=== PATIENT | male | born 1960 | race Caucasian/White ===

== ENCOUNTER 2020-01-23 13:50 | Outpatient (RCR) | payer MEDICAID, SELFPAY ==
[2020-02-29 14:31] LABS: Estimated Average Glucose 146 mg/dL; Hemoglobin A1c % 6.7 %
== END 2020-05-22 14:28 | disposition home or self-care (01) ==
LOC: HO.WCC 13:50
PROVIDERS: Visit Provider Surgery
DX: E11.621 Type 2 diabetes mellitus with foot ulcer (principal); E11.51 Type 2 diabetes mellitus with diabetic peripheral angiopathy without gangrene; I70.245 Atherosclerosis of native arteries of left leg with ulceration of other part of foot; L97.522 Non-pressure chronic ulcer of other part of left foot with fat layer exposed; E11.40 Type 2 diabetes mellitus with diabetic neuropathy, unspecified; L84 Corns and callosities; M32.9 Systemic lupus erythematosus, unspecified; F17.200 Nicotine dependence, unspecified, uncomplicated; Z87.39 Personal history of other diseases of the musculoskeletal system and connective tissue
CPT/HCPCS: 11042; 15275; 83036; 97597; 99212; 99213; Q4187

== ENCOUNTER 2020-03-13 08:16 | Outpatient (REF) | payer MEDICAID, SELFPAY ==
[2020-03-13 10:32] LABS: Blood Urea Nitrogen 12 mg/dL (9-16); Estimated Glomerular Filt Rate > 60
== END 2020-03-13 08:17 | disposition home or self-care (01) ==
LOC: HO.10HDL 08:16
PROVIDERS: Visit Provider Radiology Vascular & Interventional Radiology
DX: R79.89 Other specified abnormal findings of blood chemistry (principal); R94.4 Abnormal results of kidney function studies
CPT/HCPCS: 82565; 84520

== ENCOUNTER 2020-03-22 07:45 | Outpatient (REF) | payer MEDICAID, SELFPAY ==
[2020-03-22 10:17] LABS: Hematocrit 45.1 % (42-52); Hemoglobin 14.4 g/dl (14.0-18.0); Mean Corpuscular HGB Conc 31.9 g/dl (31.0-36.0); Mean Corpuscular Hemoglobin 30.3 pg (27.0-33.0); Mean Corpuscular Volume 94.7 fL (80-98); Mean Platelet Volume 11.7 fL (9.4-12.4); Platelet Count 253 X10*3/uL (160-400); Red Blood Count 4.76 X10*6/uL (4.60-5.80); Red Cell Distribution Width 12.9 % (11.0-16.0); White Blood Count 10.9 X10*3/uL (4.8-10.8)
[2020-03-22 10:35] LABS: INTERNATIONAL NORM RATIO 2.3 (0.9-1.1); Prothrombin Time 27.5 SEC (10.8-13.0)
[2020-03-22 10:38] LABS: Partial Thromboplastin Time 50.6 SEC (24.1-38.0)
[2020-03-22 10:52] LABS: Blood Urea Nitrogen 10 mg/dL (9-16); Estimated Glomerular Filt Rate > 60
== END 2020-03-22 07:46 | disposition home or self-care (01) ==
LOC: HO.10HDL 07:45
PROVIDERS: Visit Provider Radiology Vascular & Interventional Radiology
DX: Z01.818 Encounter for other preprocedural examination (principal)
CPT/HCPCS: 36415; 82565; 84520; 85027; 85610; 85730

== ENCOUNTER 2020-04-27 07:40 | Outpatient (REF) | payer MEDICAID, SELFPAY ==
--- NOTE | 2020-04-27 07:47 | XR_ITS ---
EXAMINATION: XR FOOT, LEFT CLINICAL INFORMATION: Left foot first metatarsal head, diabetic foot, question osteomyelitis COMPARISON: Left foot radiograph from 02/20/2018 TECHNIQUE: AP, lateral, and oblique views of the left foot. FINDINGS: Status post transmetatarsal amputation involving the first distal metatarsal. Post surgical changes are noted with subchondral changes. Healed fracture deformity involving the second metatarsal distal metadiaphysis redemonstration of sclerotic changes involving the third metatarsal head suggesting Freiberg's infraction/avascular necrosis. No cortical erosions or periosteal thickening visualized. Questionable soft tissue defect at the medial aspect at the level of the first metatarsal diaphysis without soft tissue gas noted. Atherosclerotic calcifications are visualized. XR/XR foot LT min 3V IMPRESSION: 1. Postsurgical changes involving the first metatarsal head. 2. Questionable soft tissue defect at the medial aspect at the level of the first metatarsal diaphysis without soft tissue gas noted. No cortical erosions or periosteal thickening suggest osteomyelitis. 3. Post fracture deformity of the second distal metatarsal. 4. 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
== END 2020-04-27 07:41 | disposition home or self-care (01) ==
LOC: HO.XRAY 07:40
PROVIDERS: PCP Family Medicine; Visit Provider Surgery
DX: E11.621 Type 2 diabetes mellitus with foot ulcer (principal)
CPT/HCPCS: 73630

== ENCOUNTER 2020-05-10 10:26 | Emergency (ER) | payer MEDICAID, SELFPAY ==
--- NOTE | ~2020-05-10 | XR_ITS ---
EXAMINATION: XR CHEST CLINICAL INFORMATION: Chest palpitations COMPARISON: None TECHNIQUE: Frontal view of the chest was obtained. FINDINGS: No significant abnormality is noted involving the heart, lungs, mediastinum, bony thorax or soft tissues. XR/XR chest 1V IMPRESSION: Unremarkable chest exam.
--- NOTE | 2020-05-10 08:23 | ECG_ITS ---
Test Reason : REPEAT Blood Pressure : / mmHG Vent. Rate : 111 BPM Atrial Rate : 156 BPM P-R Int : 000 ms QRS Dur : 094 ms QT Int : 344 ms P-R-T Axes : 000 039 003 degrees QTc Int : 467 ms Atrial fibrillation with rapid ventricular response with premature ventricular or aberrantly conducted complexes Abnormal ECG When compared with ECG of 10-MAY-2020 10:44, No significant change was found Referred By: Wilian Nelson Electronically Signed By:LIDYA FLORES MD
--- NOTE | 2020-05-10 09:30 | CA_ITS ---
Transthoracic Echocardiogram Patient (Last, First, Middle): Wyatt Cohen F Gender: Male Date of : 1960 Age: 59 Procedure Date: 05/10/2020 Procedure Type: Transthoracic Echocardiogram Location: OP Height: 177.8 cm Weight: 111.13 kg BSA: 2.28 m2 Heart Rate: bpm BP: 139 / 70 mmHg Point Of Care Specialist: DAVIS Referring MD: Cortez Nava MD Claims Consultant: Cortez Nava MD Symptoms: I48.0 PAF, I10 HTN E11.9 DM 2 G47.33 KEON Study Quality: Fair ECG Rhythm: Atrial Fibrillation Conclusions: - 1. Mildly reduced LV systolic function with LVEF of 45-50% 2. Mild dilation of left atrium 3. Normal cardiac valvular Doppler 4. Normal RV systolic pressure 5. No pericardial effusion Findings Left Ventricle Normal left ventricular cavity size. There is normal left ventricular wall thickness. The left ventricular systolic function is mildly decreased. The visually estimated ejection fraction is between 45-50%. Diastolic function is indeterminate on the basis of available data. Right Ventricle Normal right ventricular cavity size and systolic function. Atria The left atrium is mildly dilated. There is no evidence of interatrial shunt. The right atrium is likely dilated. Aortic Valve The aortic valve structure and function is likely normal. There is no aortic valve stenosis. There is no aortic valve regurgitation. Mitral Valve There is mild anterior and posterior mitral leaflet thickening. There is trace mitral valve regurgitation. There is no mitral valve stenosis. Pulmonic Valve The pulmonic valve was not well visualized. Tricuspid Valve Likely normal tricuspid valve structure and function. There is trace tricuspid valve regurgitation. The right ventricular systolic pressure is normal. The right ventricular systolic pressure is 12 mmHg. Normal right atrial pressure. There is no evidence of pulmonary hypertension. Great Vessels All visible segments of the aorta are normal in size. The pulmonary artery was not well visualized. Venous The inferior vena cava is normal in size and collapses greater than 50% with inspiration. Pericardium/Pleural There is no evidence of pericardial effusion. Prior Study Comparison Changes noted compared to prior study dated: 09/02/2016. LV systolic function marginally reduced Measurements 2D Linear Measurements IVSd: 1.13 0.6-0.9/0.6-1.0 cm LVIDd: 4.38 3.9-5.3/4.2-5.9 cm LVIDd Index: 1.92 2.4-3.2/2.2-3.1 cm/m2 LVIDs: 3.32 2.0-3.6 cm LVPWd: 1.14 0.7-1.1 cm Ao Root: 3.00 2.1-3.5 cm LA Diam: 3.70 2.7-3.8/3.0-4.0 cm LAIDs Index: 1.62 1.5-2.3 cm/m2 LV Mass: 218.45 67-162/88-224 g LV Mass Index: 95.81 43-95/49-115 g/m2 LVOT Diam: 2.30 3.0+(-)1.3 cm 2D Systolic Function EF 4C: 47.30 >55% EF 2C: 52.30 >55% EF BiP: 48.90 >55% Aortic Valve AoV Pk Yonathan: 1.39 AoV Mn Yonathan: 0.94 AoV VTI: 0.24 AoV Pk Grad: 8.00 Aov Mn Grad: 4.00 RIKKI Cont.VTI: 2.97 LVOT LVOT Pk Yonathan: 1.01 LVOT Mn Yonathan: 0.69 LVOT VTI: 0.17 LVOT Pk Grad: 4.00 LVOT Mn Grad: 2.00 LVOT Diam: 2.30 LVOT Area: 4.15 Tricuspid Valve TR Pk Yonathan: 1.47 TR Pk Grad: 9.00 RA Press: 3.00 RVSP: 12.00 Great Vessels Aorta Ao Root-2D: 3.00 2.0-3.7 cm Ao Asc: 3.30 2.1-3.4 cm Updated in Other Vendor System with Status of Final Cortez Nava MD electronically signed on 05/11/2020 3:05:46 PM with status of Final
[2020-05-10 10:35] VITALS: BP 111/61; PULSE 115; RESP 14; TEMP 37.1; O2SAT 97; BMI 35.2
--- NOTE | 2020-05-10 10:48 | ECG_ITS ---
Test Reason : AFIB Blood Pressure : / mmHG Vent. Rate : 107 BPM Atrial Rate : 111 BPM P-R Int : 000 ms QRS Dur : 084 ms QT Int : 364 ms P-R-T Axes : 000 038 011 degrees QTc Int : 485 ms Atrial fibrillation with rapid ventricular response with premature ventricular or aberrantly conducted complexes Abnormal ECG When compared with ECG of 01-SEP-2016 11:40, No significant change was found Referred By: Wilian Nelson Electronically Signed By:LIDYA FLOERS MD
[2020-05-10 11:35] LABS: MANUAL DIFF FLAG NO
[2020-05-10 11:39] VITALS: BP 113/56; PULSE 105; RESP 16; TEMP 37; O2SAT 96
[2020-05-10 11:40] LABS: Basophils Absolute Auto 0.1 X10*3/uL (0.0-0.2); Basophils Percent Auto 0.5 % (0-2); Eosinophils Absolute Auto 0.1 X10*3/uL (0.0-0.4); Eosinophils Percent Auto 1.4 % (0-4); Hematocrit 42.3 % (42-52); Hemoglobin 13.7 g/dl (14.0-18.0); Imm Gran Abs Auto 0.02 X10*3/uL (0.00-0.03); Imm Gran Pct Auto 0.2 % (0.0-0.4); Lymphocytes Absolute Auto 2.1 X10*3/uL (1.2-4.9); Lymphocytes Percent Auto 23.2 % (20-40); Mean Corpuscular HGB Conc 32.4 g/dl (31.0-36.0); Mean Corpuscular Hemoglobin 30.4 pg (27.0-33.0); Mean Corpuscular Volume 93.8 fL (80-98); Mean Platelet Volume 10.8 fL (9.4-12.4); Monocytes Absolute Auto 0.8 X10*3/uL (0.1-1.2); Monocytes Percent Auto 8.3 % (2-11); Neutrophils Percent Auto 66.4 % (45-73); Platelet Count 249 X10*3/uL (160-400); Red Blood Count 4.51 X10*6/uL (4.60-5.80); Red Cell Distribution Width 13.7 % (11.0-16.0); White Blood Count 9.1 X10*3/uL (4.8-10.8)
[2020-05-10 11:47] LABS: Prothrombin Time 23.7 SEC (10.8-13.0)
[2020-05-10 11:50] LABS: Partial Thromboplastin Time 49.1 SEC (24.1-38.0)
[2020-05-10 12:03] LABS: Troponin-I High Sensitivity < 3.5 ng/L (<3.5-35.0)
[2020-05-10 12:07] VITALS: BP 159/95; PULSE 110
[2020-05-10] MEDS: Metoprolol Tartrate 5 MG/5 ML VIAL IVPUSH (12:07)
[2020-05-10 12:11] LABS: Alanine Aminotransferase 17 U/L (0-40); Albumin Level 3.9 g/dL (3.5-5.0); Alkaline Phosphatase 62 U/L (39-117); Anion Gap 14 (12-20); Aspartate Amino Transferase 14 U/L (5-37); Bilirubin Total 0.5 mg/dL (0.0-1.0); Blood Urea Nitrogen 12 mg/dL (9-16); Calcium 8.8 mg/dL (8.4-10.2); Carbon Dioxide 25 mmol/L (22-29); Chloride 107 mmol/L (96-108); Creatinine Clr Calc Pharmacy 115.3; Estimated Glomerular Filt Rate > 60; Glucose Random 132 mg/dL (60-115); Potassium 4.4 mmol/L (3.3-5.1); Sodium 142 mmol/L (135-145)
[2020-05-10 12:22] LABS: Glucose Urine UA NEG (NEG); Leukocyte Esterase Urine 1+ (NEG); Nitrite Urine POS (NEG); Specific Gravity - Urine 1.025 (1.005-1.025); UACC Culture Trigger YES; Urine Blood 1+ (NEG); Urine Ketones NEG (NEG); Urine Protein NEG (NEG-TRACE)
[2020-05-10 12:23] LABS: Appearance Urine CLOUDY; Color Urine YELLOW
[2020-05-10 12:31] LABS: Thyroid Stimulating Hormone 0.65 uIU/mL (0.32-4.0)
--- NOTE | 2020-05-10 12:46 | ED.ARRPALP ---
HPI - Arrhythmia/Palpitations General Chief Complaint: Arrhythmia/Palpitations Time Seen by Provider: 05/10/20 10:35 Source: patient Mode of arrival: ambulatory Limitations: no limitations History of Present Illness HPI narrative: 59-year-old male with past medical history significant for hypertension, hyperlipidemia, diabetes, chronic pain syndrome from previous back injury, history of lower extremity cellulitis as well as osteomyelitis, asthma, neuropathy, proximal atrial fibrillation chronically anticoagulated on Xarelto and maintained on metoprolol 100 daily in the morning with surgical history of ankle surgery, toe amputation of the left foot who presents from outpatient Cardiology with complaint of AFib with RVR. Patient reports he was in for routine echo and during the preprocedure screening noted to be AFib with RVR advised to come to the emergency room. MD complaint: rapid heart beat Duration: constant Severity: mild Arrhythmia history: atrial fibrillation Related Data Allergies Allergy/AdvReac Type Severity Reaction Status Date / Time vancomycin [VANCOMYCIN] Allergy Intermediate ITCHING, Unverified 12/15/19 14:46 RASH, hives Review of Systems Review of Systems: Constitutional: No Weight loss, No Fever, No Chills, No Night Sweats, No Fatigue, No Malaise ENT/Mouth: No Hearing loss, No Ear Pain, No Nasal Congestion, No Sinus Pain, No Hoarseness, No sore throat, No Rhinorrhea, No Swallowing Difficulty Eyes: No Eye Pain, No Swelling, No Redness, No Foreign Body, No Discharge, No Vision Changes Cardiovascular: No Chest Pain, No SOB, No Dyspnea on Exertion, No Orthopnea, No Edema, No Palpitations Respiratory: No Cough, No Sputum, No Wheezing, No Smoke Exposure, No Dyspnea Gastrointestinal: No Nausea, No Vomiting, No Diarrhea, No Constipation, No abdominal Pain, No Hematochezia, No Melena Genitourinary: no irregular bleeding, No Dysuria, No Urinary Frequency, No Hematuria, No Urinary Incontinence, No Urgency, No Flank Pain Musculoskeletal: No joint pain, No Myalgias, No Joint Swelling Skin: No Skin Lesions, No rash Neuro: No Weakness, No Numbness, No Paresthesias, No Loss of Consciousness, No Dizziness, No Headache Psych: No Social Issues Heme/Lymph: No Bruising, No Bleeding,No Lymphadenopathy Endocrine: No Polyuria, No Polydipsia, No Temperature Intolerance Yes all other systems are reviewed and are negative PMFSH Past Medical History Medical History (Updated 05/10/20 @ 13:23 by Wilian Nelson NP) Amputated great toe Diabetes Physical Exam Vital Signs: Vital Signs: Last Vital Signs Temp 98.6 F 05/10/20 13:20 Pulse 88 05/10/20 13:20 Resp 14 05/10/20 13:20 BP 123/65 05/10/20 13:20 Pulse Ox 98 05/10/20 13:20 Body Mass Index 35.2 Reviewed Const: General: cooperative and healthy appearing; No acute distress or intoxicated appearing Nutritional Appearance: average body habitus Orientation/consciousness: patient oriented x3 HENMT: Head: Yes normal to inspection Ears: hearing grossly normal bilaterally Eyes: General: appearance normal, both eyes and all related structures Visual Lr: normal visual lr by confrontation Neck: Neck: Yes normal visual inspection, No positive Brudzinski's sign, No positive Kernig's sign and No tender Thyroid: Thyroid normal Chest: Chest palpation & inspection: normal inspection of the chest Resp: Effort & Inspection: normal respiratory effort Auscultation: clear to auscultation bilaterally Cardio: Jugular venous distension: no JVD Rhythm: abnormal rhythm (AFib 110) GI: Inspection: Yes normal to inspection Percussion: Yes normal to percussion Auscultation: normal bowel sounds : General: Yes no CVA tenderness Back/Spine/Pelvis: Back: no CVA tenderness Skin: General skin exam: no rashes or lesions noted Neuro: General: patient oriented x3 Extrem: General: Yes normal to inspection Course Course Course Narrative: In review MDM - Arrhythmia/Palpitations MDM Narrative Medical decision making narrative: Interview 59-year-old male with above history including history of paroxysmal atrial fibrillation currently maintained on metoprolol 100 mg in the morning daily and Xarelto arriving to ED with atrial fibrillation with RVR. He is asymptomatic workup overall unrevealing. Bedside monitor AFib confirmed on EKG rate varying from 90-115 given 5 mg of metoprolol IV has maintained in the high 90s remains asymptomatic. Case discussed with Dr. Nava cardiology recommendation to increase his metoprolol to b.i.d.. Blood pressure remains stable. He is out of bed ambulatory steady gait. Good bathroom without any symptoms. Will discharge home with clear return follow-up instructions prior to he does have follow-up coming with Cardiology. Stable for discharge. Lab Data Result diagrams: 05/10/20 11:29 05/10/20 11:29 Labs: Lab Results 05/10/20 05/10/20 05/10/20 Range/Units 11:29 11:29 11:29 WBC 9.1 (4.8-10.8) X10*3/uL RBC 4.51 L (4.60-5.80) X10*6/uL Hgb 13.7 L (14.0-18.0) g/dl Hct 42.3 (42-52) % MCV 93.8 (80-98) fL MCH 30.4 (27.0-33.0) pg MCHC 32.4 (31.0-36.0) g/dl RDW 13.7 (11.0-16.0) % Plt Count 249 (160-400) X10*3/uL MPV 10.8 (9.4-12.4) fL Immature Gran % (Auto) 0.2 (0.0-0.4) % Neut % (Auto) 66.4 (45-73) % Lymph % (Auto) 23.2 (20-40) % [place] % (Auto) 8.3 (2-11) % Eos % (Auto) 1.4 (0-4) % Baso % (Auto) 0.5 (0-2) % Lymph # (Auto) 2.1 (1.2-4.9) X10*3/uL [place] # (Auto) 0.8 (0.1-1.2) X10*3/uL Eos # (Auto) 0.1 (0.0-0.4) X10*3/uL Baso # (Auto) 0.1 (0.0-0.2) X10*3/uL Abs Immat Gran (auto) 0.02 (0.00-0.03) X10*3/uL Absolute Neuts (auto) 6.0 (2.0-8.3) X10*3/uL Absolute Nucleated RBC 0.000 (0.0-0.012) X10*3/uL Nucleated RBC % (auto) 0.0 (0.0-0.2) /100WBC PT 23.7 H (10.8-13.0) SEC INR 2.0 H (0.9-1.1) APTT 49.1 H (24.1-38.0) SEC Sodium 142 (135-145) mmol/L Potassium 4.4 (3.3-5.1) mmol/L Chloride 107 (96-108) mmol/L Carbon Dioxide 25 (22-29) mmol/L Anion Gap 14 (12-20) BUN 12 (9-16) mg/dL Creatinine 0.85 (0.5-1.4) mg/dL Estim Creat Clear Calc 115.3 Estimated GFR > 60 Random Glucose 132 H (60-115) mg/dL Calcium 8.8 (8.4-10.2) mg/dL Total Bilirubin 0.5 (0.0-1.0) mg/dL AST 14 (5-37) U/L ALT 17 (0-40) U/L Alkaline Phosphatase 62 (39-117) U/L Troponin I High Sens (<3.5-35.0) ng/L Total Protein 7.0 (6.5-8.0) g/dL Albumin 3.9 (3.5-5.0) g/dL TSH 0.65 (0.32-4.0) uIU/mL Urine Color Urine Appearance Urine pH (5.0-8.0) Ur Specific [place] (1.005-1.025) Urine Protein (NEG-TRACE) MG/DL Urine Glucose (UA) (NEG) MG/DL Urine Ketones (NEG) MG/DL Urine Blood (NEG) Urine Nitrite (NEG) Ur Leukocyte Esterase (NEG) Urine RBC (0) /HPF Urine WBC (0-4) /HPF Ur Squamous Epith Cells /LPF Urine Bacteria /LPF Urine Opiates Screen (Not Detect) Ur Barbiturates Screen (Not Detect) Ur Phencyclidine Scrn (Not Detect) Ur Amphetamines Screen (Not Detect) U Benzodiazepines Scrn (Not Detect) Urine Cocaine Screen (Not Detect) U Marijuana (THC) Screen (Not Detect) 05/10/20 05/10/20 05/10/20 Range/Units 11:29 12:00 12:00 WBC (4.8-10.8) X10*3/uL RBC (4.60-5.80) X10*6/uL Hgb (14.0-18.0) g/dl Hct (42-52) % MCV (80-98) fL MCH (27.0-33.0) pg MCHC (31.0-36.0) g/dl RDW (11.0-16.0) % Plt Count (160-400) X10*3/uL MPV (9.4-12.4) fL Immature Gran % (Auto) (0.0-0.4) % Neut % (Auto) (45-73) % Lymph % (Auto) (20-40) % [place] % (Auto) (2-11) % Eos % (Auto) (0-4) % Baso % (Auto) (0-2) % Lymph # (Auto) (1.2-4.9) X10*3/uL [place] # (Auto) (0.1-1.2) X10*3/uL Eos # (Auto) (0.0-0.4) X10*3/uL Baso # (Auto) (0.0-0.2) X10*3/uL Abs Immat Gran (auto) (0.00-0.03) X10*3/uL Absolute Neuts (auto) (2.0-8.3) X10*3/uL Absolute Nucleated RBC (0.0-0.012) X10*3/uL Nucleated RBC % (auto) (0.0-0.2) /100WBC PT (10.8-13.0) SEC INR (0.9-1.1) APTT (24.1-38.0) SEC Sodium (135-145) mmol/L Potassium (3.3-5.1) mmol/L Chloride (96-108) mmol/L Carbon Dioxide (22-29) mmol/L Anion Gap (12-20) BUN (9-16) mg/dL Creatinine (0.5-1.4) mg/dL Estim Creat Clear Calc Estimated GFR Random Glucose (60-115) mg/dL Calcium (8.4-10.2) mg/dL Total Bilirubin (0.0-1.0) mg/dL AST (5-37) U/L ALT (0-40) U/L Alkaline Phosphatase (39-117) U/L Troponin I High Sens < 3.5 (<3.5-35.0) ng/L Total Protein (6.5-8.0) g/dL Albumin (3.5-5.0) g/dL TSH (0.32-4.0) uIU/mL Urine Color YELLOW Urine Appearance CLOUDY Urine pH 6.0 (5.0-8.0) Ur Specific [place] 1.025 (1.005-1.025) Urine Protein NEG (NEG-TRACE) MG/DL Urine Glucose (UA) NEG (NEG) MG/DL Urine Ketones NEG (NEG) MG/DL Urine Blood 1+ H (NEG) Urine Nitrite POS H (NEG) Ur Leukocyte Esterase 1+ H (NEG) Urine RBC 5-9 H (0) /HPF Urine WBC 76-150 H (0-4) /HPF Ur Squamous Epith Cells NONE /LPF Urine Bacteria 4+ /LPF Urine Opiates Screen POSITIVE H (Not Detect) Ur Barbiturates Screen Not Detected (Not Detect) Ur Phencyclidine Scrn Not Detected (Not Detect) Ur Amphetamines Screen Not Detected (Not Detect) U Benzodiazepines Scrn Not Detected (Not Detect) Urine Cocaine Screen Not Detected (Not Detect) U Marijuana (THC) Screen Not Detected (Not Detect) Imaging Data Chest x-ray: Radiologist's impression: [address] [id number] ReportSigned Patient: Wyatt Cohen FMR#: [id number]: 1960Acct:[id number]/Sex: 59 / MADM Date: 05/10/20Loc: [email or web address] Dr: Cortez Nava MD Ordering Physician: Wilian Nelson NP Date of Service: 05/10/20 Procedure(s): XR chest 1V Accession Number(s): [id number] cc: Wilian Nelson ARMORER TECHNICIAN~ EXAMINATION: XR CHEST CLINICAL INFORMATION: Chest palpitations COMPARISON: None TECHNIQUE: Frontal view of the chest was obtained. FINDINGS: No significant abnormality is noted involving the heart, lungs, mediastinum, bony thorax or soft tissues. XR/XR chest 1V IMPRESSION: Unremarkable chest exam. Dictated By:ISABELLA PEGUERO MDSigned By:<Electronically signed by ISABELLA PEGUERO MD in OV>05/10/20 1203 DD/ 1048TD/TT: Bobbin Painter: LIANA ECG Data Interpretation: Atrial fibrillation with rapid ventricular response with premature ventricular or aberrantly conducted complexes Abnormal ECG When compared with ECG of 01-SEP-2016 11:40, No significant change was found Discharge Plan Discharge Clinical Impression: Atrial fibrillation Patient Disposition: Home, Self-Care Instructions: A-fib (Atrial Fibrillation) (ED) Additional Instructions: Increase her metoprolol dose from 100 mg in the morning to Twice a day (once in the morning and once at night) Return if any concerns or worsening symptoms Follow-up with coil strapper as planned Thank you Referrals: Cortez Nava MD [Physician] - 1 week Interventions: ED Discharge Assessment Last Done: 05/10/20 13:44 Discharge Date/Time: 05/10/20 13:47
[2020-05-10 13:00] LABS: Amphetamine Screen Urine Not Detected (Not Detect); Barbiturates, Urine Not Detected (Not Detect); Benzodiazepines Screen Urine Not Detected (Not Detect); Cannabinoid Screen Urine Not Detected (Not Detect); Cocaine Screen Urine Not Detected (Not Detect); Opiate Screen Urine POSITIVE (Not Detect); Phencyclidine Screen Urine Not Detected (Not Detect)
[2020-05-10 13:01] LABS: Bacteria Urine 4+ /LPF; UACC CULT YES
[2020-05-10 13:20] VITALS: BP 123/65; PULSE 88; RESP 14; TEMP 37; O2SAT 98
== END 2020-05-10 13:47 | disposition home or self-care (01) ==
LOC: HO.ED 10:26
PROVIDERS: Nurse Practitioner Primary Care; Emergency Provider Internal Medicine; Visit Provider Internal Medicine Cardiovascular Disease
DX: I48.91 Unspecified atrial fibrillation (principal); R07.9 Chest pain, unspecified; I10 Essential (primary) hypertension; E78.5 Hyperlipidemia, unspecified; Z79.01 Long term (current) use of anticoagulants
CPT/HCPCS: 36415; 71045; 80053; 80307; 81001; 84443; 84484; 85025; 85610; 85730; 87086; 87088; 87186; 93005; 93306; 96374; 99284

== ENCOUNTER → 2020-05-16 09:49 | Outpatient (BNVA) | payer MEDICAID, SELFPAY | PROVIDERS: PCP Family Medicine; Visit Provider Internal Medicine Cardiovascular Disease | DX: I48.19 Other persistent atrial fibrillation (principal); I10 Essential (primary) hypertension; I42.9 Cardiomyopathy, unspecified; G47.33 Obstructive sleep apnea (adult) (pediatric) | CPT/HCPCS: 93005; 99212 ==

== ENCOUNTER 2020-05-18 12:18 | Day surgery (SDC) | payer MEDICAID, SELFPAY ==
--- NOTE | 2020-05-17 09:58 | P.CONAN_ITS ---
Documented by User: Julita Jesusney 05/17/20 10:12 HPI - Anesthesia Eval Consult details Narrative: 59yo M for Cardioversion Xarelto for afib Chronic opioids PMFSH Active Problems Active Problems: All Active Problems (Updated 05/16/20 @ 10:20 by Cortez Nava MD) Cardiomyopathy (Acute) Obstructive sleep apnea (Acute) HTN (hypertension) (Acute) Persistent atrial fibrillation with rapid ventricular response (Acute) Past Medical History Medical History Amputated great toe Cardiomyopathy Diabetes HTN (hypertension) Obstructive sleep apnea Paroxysmal atrial fibrillation Peripheral vascular disease Smoker Family History Family History Mother No problems noted. Father No problems noted. Family/Other Diabetes Surgical History Surgical History History of cardiac cath Social History Social History Alcohol intake: former Smoking Status: Current every day smoker Packs Per Day: 0.5 Cigarettes Per Day: 10 Years Smoked: 45 years Use of substances other than those prescribed or required for medical reasons: No Have you been hit, kicked, punched, or otherwise hurt by someone within the past year? If so, by whom?: No Advance Directives: No Advance Directives Information Provided: No Meds Allergies Allergy/AdvReac Type Severity Reaction Status Date / Time vancomycin [VANCOMYCIN] Allergy Intermediate ITCHING, Verified 05/18/20 12:29 RASH, hives Home Medications Medication Instructions Recorded Confirmed Last Taken Type atorvastatin 40 mg tablet 40 mg PO DAILY 05/16/20 05/16/20 05/18/20 History metformin 750 mg tablet,extended 750 mg PO BID 05/16/20 05/16/20 Unknown History release 24 hr morphine 30 mg capsule,extended 30 mg PO BID cap 05/16/20 05/16/20 05/18/20 History release 24 hr multiphase rivaroxaban 20 mg tablet 20 mg PO QPM 05/16/20 05/16/20 05/18/20 History Exam Exam Date and Time: May 17, 2020 4608 Narrative Narrative: ECHO 05/10/20 Conclusions: - 1. Mildly reduced LV systolic function with LVEF of 45-50% 2. Mild dilation of left atrium 3. Normal cardiac valvular Doppler 4. Normal RV systolic pressure 5. No pericardial effusion EKG 04/2020 Atrial fibrillation with rapid ventricular response with premature ventricular or aberrantly conducted complexes Abnormal ECG When compared with ECG of 01-SEP-2016 11:40, No significant change was found Assessment and Plan Assessment Anesthesia Assessment: Chart Reviewed Documented by User: Monse Smith 05/18/20 13:42 [facility] Past Medical History Medical History Amputated great toe Cardiomyopathy Diabetes HTN (hypertension) Obstructive sleep apnea Paroxysmal atrial fibrillation Peripheral vascular disease Smoker Family History Family History Mother No problems noted. Father No problems noted. Family/Other Diabetes Surgical History Surgical History History of cardiac cath Social History Social History Alcohol intake: former Smoking Status: Current every day smoker Packs Per Day: 0.5 Cigarettes Per Day: 10 Years Smoked: 45 years Use of substances other than those prescribed or required for medical reasons: No Have you been hit, kicked, punched, or otherwise hurt by someone within the past year? If so, by whom?: No Advance Directives: No Advance Directives Information Provided: No Meds Allergies Allergy/AdvReac Type Severity Reaction Status Date / Time vancomycin [VANCOMYCIN] Allergy Intermediate ITCHING, Verified 05/18/20 12:29 RASH, hives Home Medications Medication Instructions Recorded Confirmed Last Taken Type atorvastatin 40 mg tablet 40 mg PO DAILY 05/16/20 05/16/20 05/18/20 History metformin 750 mg tablet,extended 750 mg PO BID 05/16/20 05/16/20 Unknown History release 24 hr morphine 30 mg capsule,extended 30 mg PO BID cap 05/16/20 05/16/20 05/18/20 History release 24 hr multiphase rivaroxaban 20 mg tablet 20 mg PO QPM 05/16/20 05/16/20 05/18/20 History Exam Airway Mallampati Class: III TM Dist: >3cm Neck ROM: Full Assessment and Plan Assessment Anesthesia Assessment: Anesthesia Plan Discussed and Chart Reviewed Final Anesthetic Review NPO: Yes ASA Class: III Final Preanesthetic Review: No Changes in Pt Med Stat, Meds/Allgs Chart Reviewed, Consent Obtained/Reviewed and Anes Risks/Benef Reviewed Patient Risk: Intermediate Procedure Risk: Low Assessment/Block/Sedation in SS: Assess/Block/Sedation-SS Anesthetic Plan Anesthetic Plan: MAC: Disposition: Standard PACU
[2020-05-17 13:43] VITALS: BMI 35.7
[2020-05-18] VITALS (9 sets, daily range): BP systolic 91–110; BP diastolic 50–66; PULSE 65–84; RESP 16–18; TEMP 36.4–37.5; O2SAT 95–98
--- NOTE | 2020-05-18 12:25 | PC.NURSE ---
PATIENT DRANK CRANBERRY JUICE AT 1100 AM MD SUZIE ALFARO
[2020-05-18 12:33] LABS: Glucose, Whole Blood 142 mg/dL (60-115)
[2020-05-18] MEDS: Lactated Ringers 1,000 ML 50 ML IVCONT (13:00)
--- NOTE | 2020-05-18 13:39 | MHC.SHP ---
Pre-Procedural Eval Section A The patient is an INPATIENT: No Changes since office visit: Yes Changes in Medication and Yes Patient answered all questions; No Cold of Flu in the past 2 weeks and No New Medical Problems The History & Physical has been completed within 30 days and I have reviewed it.: Yes Section B Chief Complaint: a-fib Allergies: Allergies Allergy/AdvReac Type Severity Reaction Status Date / Time vancomycin [VANCOMYCIN] Allergy Intermediate ITCHING, Verified 05/18/20 12:29 RASH, hives Plan I have reviewed the history and physical and performed a pertinent physical examination on my patient. No changes have occurred unless specified.
--- NOTE | 2020-05-18 13:40 | ECG_ITS ---
Test Reason : POST CARDIOVERSION Blood Pressure : / mmHG Vent. Rate : 066 BPM Atrial Rate : 066 BPM P-R Int : 170 ms QRS Dur : 094 ms QT Int : 414 ms P-R-T Axes : 048 054 036 degrees QTc Int : 434 ms Normal sinus rhythm Normal ECG When compared with ECG of 10-MAY-2020 13:25, Sinus rhythm has replaced Atrial fibrillation Vent. rate has decreased BY 45 BPM Nonspecific T wave abnormality has replaced inverted T waves in Inferior leads Referred By: Cortez Nava Electronically Signed By:Isaiah Farr
--- NOTE | 2020-05-18 13:50 | HO.CARDIVERS ---
Cardioversion Procedure Note Cardioversion Date of Procedure: 05/18/2020 Ordering Provider: Myself Performing Provider: Myself Indication for Procedure: Persistent symptomatic atrial fibrillation Pre-Op Diagnosis: Persistent atrial fibrillation Post-Op Diagnosis: Sinus rhythm Performed with Transesophageal Echo: No History: See history and physical for details Consent: Verbal and Written consent was obtained from the patient before starting and after confirming use of oral anticoagulation therapy.. The patient was made aware of the risk of the procedure including benefits, 2nd opinion and alternatives. Procedure: After consent obtained, cardioversion pads were attached in AP configuration and the patient was sedated by the anesthesia team. Once adequate sedation achieved, patient was delivered 200 joules of biphasic synchronized energy in AP configuration Complications: None Impression: Successful conversion to sinus rhythm Recommendations: 1. Continue Multaq 2. Continue full oral anticoagulation uninterrupted 3. Holter monitor in 2 weeks 4. Status EKG
== END 2020-05-18 13:25 ==
LOC: HO.SSS 12:19
PROVIDERS: PCP Family Medicine; Visit Provider Internal Medicine Cardiovascular Disease
PROC: 5A2204Z Restoration of Cardiac Rhythm, Single (ICD-10-PCS; principal; 2020-05-18 13:50)
DX: I48.0 Paroxysmal atrial fibrillation (principal); Z79.01 Long term (current) use of anticoagulants; I42.9 Cardiomyopathy, unspecified; I10 Essential (primary) hypertension; E11.9 Type 2 diabetes mellitus without complications; G47.33 Obstructive sleep apnea (adult) (pediatric); Z79.84 Long term (current) use of oral hypoglycemic drugs; Z79.899 Other long term (current) drug therapy; Z88.1 Allergy status to other antibiotic agents; F17.210 Nicotine dependence, cigarettes, uncomplicated
CPT/HCPCS: 82947; 92960; 93005

== ENCOUNTER → 2020-05-31 09:12 | Outpatient (REF) | payer MEDICAID, SELFPAY ==
--- NOTE | 2020-05-31 14:15 | ECG_ITS ---
Hook-up date: 2020-05-31 10:20:00 Duration: 25:11:00 Test Indications: PAF Medications: 50036 QRS complexes 1107 Ventricular ectopics which represent 1 % of total QRS comp. 31 Supraventricular ectopics which represent <1 % of total QRS comp. * Paced QRS complexs which represent % of total QRS comp. VENTRICULAR ECTOPY 1107 Isolated 0 Bigeminal Cycles 0 Couplets 0 Runs 0 Beats in Runs * Beats LONGEST at * BPM at :: -- * Beats FASTEST at * BPM at :: -- SUPRAVENTRICULAR ECTOPY 12 Isolated 8 Couplets 1 Runs 3 Beats in Runs 3 Beats LONGEST at 150 BPM at 15:39:51 2020-05-31 3 Beats FASTEST at 150 BPM at 15:39:51 2020-05-31 HEART RATES 50 MIN at 09:16:10 2020-06-01 68 AVG 88 MAX at 19:38:52 2020-05-31 LONGEST RR 2.3280 secs at 12:32:19 2020-05-31 S-T LEVELS Channel 1 - 128 mm at 10:20:00 2020-05-31 - 128 mm at 10:20:00 2020-05-31 Channel 2 - 128 mm at 10:20:00 2020-05-31 - 128 mm at 10:20:00 2020-05-31 Channel 3 - 128 mm at 02:93:91 -- - 128 mm at 02:93:91 Basic rhythm Normal sinus rhythm No long pause or profound bradycardia Frequent Premature ventricular complexes Patient did not report any symptoms in the diary Referred By: Cortez Nava Overread By: CORTEZ NAVA MD
== END ==
LOC: HO.CARD 09:12
PROVIDERS: PCP Family Medicine; Visit Provider Internal Medicine Cardiovascular Disease
DX: I48.0 Paroxysmal atrial fibrillation (principal)
CPT/HCPCS: 93226

== ENCOUNTER → 2020-06-18 13:36 | Outpatient (REF) | payer MEDICAID, SELFPAY ==
--- NOTE | 2020-06-18 13:42 | CA_ITS ---
Transthoracic Echocardiogram Patient (Last, First, Middle): Wyatt Cohen F Gender: Male Date of : 1960 Age: 59 Procedure Date: 06/18/2020 Procedure Type: Transthoracic Echocardiogram Location: OP Height: 177.8 cm Weight: 111.13 kg BSA: 2.28 m2 Heart Rate: bpm BP: 118 / 60 mmHg Camp Counselor: ALESSIO Referring MD: Cortez Nava MD Symptoms: I42.9 - Cardiomyopathy, unspecified Study Quality: Good ECG Rhythm: Sinus Conclusions: - The left ventricular systolic function is normal. The visually estimated ejection fraction is between 60-65%. Findings Left Ventricle Normal left ventricular cavity size. There is mildly increased left ventricular wall thickness. The left ventricular systolic function is normal. The visually estimated ejection fraction is between 60-65%. There is no evidence of regional wall motion abnormalities. Right Ventricle Normal right ventricular cavity size and systolic function. Prior Study Comparison Changes noted compared to prior study dated: 05/10/2020. Improved LVEF. Measurements 2D Linear Measurements IVSd: 1.21 0.6-0.9/0.6-1.0 cm LVIDd: 5.01 3.9-5.3/4.2-5.9 cm LVIDd Index: 2.20 2.4-3.2/2.2-3.1 cm/m2 LVIDs: 3.26 2.0-3.6 cm LVPWd: 1.22 0.7-1.1 cm LV Mass: 297.52 67-162/88-224 g LV Mass Index: 130.49 43-95/49-115 g/m2 2D Systolic Function EF 4C: 61.40 >55% EF 2C: 63.70 >55% EF BiP: 64.90 >55% Tricuspid Valve TR Pk Yonathan: 2.01 TR Pk Grad: 16.00 Updated in Other Vendor System with Status of Final Paulino Reyes MD electronically signed on 06/19/2020 11:46:38 AM with status of Final
== END ==
LOC: HO.CARD 13:36
PROVIDERS: PCP Family Medicine; Visit Provider Internal Medicine Cardiovascular Disease
DX: I42.9 Cardiomyopathy, unspecified (principal)
CPT/HCPCS: 93308

== ENCOUNTER → 2020-06-28 10:04 | Outpatient (BNVA) | payer MEDICAID, SELFPAY | PROVIDERS: PCP Family Medicine; Visit Provider Internal Medicine Cardiovascular Disease | DX: I48.0 Paroxysmal atrial fibrillation (principal); I42.9 Cardiomyopathy, unspecified; I10 Essential (primary) hypertension | CPT/HCPCS: 93005; 99212 ==

== ENCOUNTER → 2020-07-24 08:18 | Outpatient (BNVA) | payer MEDICAID, SELFPAY | PROVIDERS: PCP Family Medicine; Visit Provider Psychiatry & Neurology Neurology | DX: G47.33 Obstructive sleep apnea (adult) (pediatric) (principal); G47.00 Insomnia, unspecified | CPT/HCPCS: 99202 ==

== ENCOUNTER 2020-07-24 09:09 | Outpatient (REF) | payer MEDICAID, SELFPAY ==
[2020-07-24 11:07] LABS: Estimated Average Glucose 128 mg/dL; Hemoglobin A1c % 6.1 %
[2020-07-24 11:19] LABS: Cholesterol 108 mg/dL; HDL Cholesterol 38 mg/dL; LDL Cholesterol Calculated 54 mg/dl; Triglycerides 82 mg/dL
[2020-07-24 11:26] LABS: Creatinine Urine 253.23 mg/dL; Microalbum/Creatinine Ratio Ur 28.8 ug/mg cr
[2020-07-24 12:58] LABS: Vitamin B12 283 pg/mL (200-900)
== END 2020-07-24 09:10 | disposition home or self-care (01) ==
LOC: HO.10HDL 09:09
PROVIDERS: Visit Provider Family Medicine
DX: E11.42 Type 2 diabetes mellitus with diabetic polyneuropathy (principal); E53.8 Deficiency of other specified B group vitamins; E78.5 Hyperlipidemia, unspecified
CPT/HCPCS: 36415; 80061; 82043; 82607; 83036

== ENCOUNTER → 2021-02-15 10:02 | Outpatient (BNVA) | payer MEDICAID, SELFPAY | PROVIDERS: PCP Family Medicine; Referring Provider Family Medicine; Visit Provider Internal Medicine Cardiovascular Disease | DX: I48.0 Paroxysmal atrial fibrillation (principal); I42.9 Cardiomyopathy, unspecified | CPT/HCPCS: 93005; 99212 ==

== ENCOUNTER → 2021-05-22 09:12 | Outpatient (BNVA) | payer MEDICAID, SELFPAY | PROVIDERS: PCP Family Medicine; Referring Provider Family Medicine; Visit Provider Internal Medicine Cardiovascular Disease | DX: I42.9 Cardiomyopathy, unspecified (principal) | CPT/HCPCS: 93005 ==

== ENCOUNTER → 2021-08-12 08:05 | Outpatient (REF) | payer MEDICAID, SELFPAY ==
--- NOTE | 2021-08-12 08:08 | CA_ITS ---
Transthoracic Echocardiogram Patient (Last, First, Middle): Wyatt Cohen F Gender: Male Date of : 1960 Age: 60 Procedure Date: 08/12/2021 Procedure Type: Transthoracic Echocardiogram Location: OP Height: 180.34 cm Weight: 111.13 kg BSA: 2.30 m2 Heart Rate: bpm BP: 120 / 80 mmHg Network Mgr: YR/TO Referring MD: Cortez Nava MD Symptoms: I42.9 - Cardiomyopathy, unspecified Study Quality: Fair ECG Rhythm: Sinus Conclusions: - The left ventricular systolic function is normal. The calculated ejection fraction is 55% by biplane method. - There is mild calcification of the aortic valve. Findings Left Ventricle Normal left ventricular cavity size. The left ventricular systolic function is normal. The calculated ejection fraction is 55% by biplane method. There is no evidence of regional wall motion abnormalities. Evidence suggests grade I (mild) diastolic dysfunction. There is mild septal asymmetric hypertrophy. Right Ventricle Mildly increased right ventricular cavity size. There is normal right ventricular systolic function. Atria Both atria are normal in size. Aortic Valve There is a normal trileaflet aortic valve. There is mild calcification of the aortic valve. There is no aortic valve stenosis. There is no aortic valve regurgitation. Mitral Valve The mitral valve appears normal. There is no mitral valve regurgitation. There is no mitral valve stenosis. Pulmonic Valve The pulmonic valve is likely normal. Tricuspid Valve Normal tricuspid valve structure. There is no tricuspid valve regurgitation. The pulmonary artery systolic pressure is normal. Great Vessels The asc aorta is normal in size. Venous The inferior vena cava is mildly dilated and collapses less than 50% with inspiration. Pericardium/Pleural There is no evidence of pericardial effusion. Prior Study Comparison No significant change compared to prior study dated: 06/18/2020. Measurements 2D Linear Measurements IVSd: 1.06 0.6-0.9/0.6-1.0 cm LVIDd: 5.10 3.9-5.3/4.2-5.9 cm LVIDd Index: 2.22 2.4-3.2/2.2-3.1 cm/m2 LVIDs: 3.38 2.0-3.6 cm LVPWd: 0.86 0.7-1.1 cm LA Diam: 3.60 2.7-3.8/3.0-4.0 cm LAIDs Index: 1.57 1.5-2.3 cm/m2 LV Mass: 221.83 67-162/88-224 g LV Mass Index: 96.45 43-95/49-115 g/m2 LVOT Diam: 2.30 3.0+(-)1.3 cm 2D Systolic Function EF 4C: 56.70 >55% EF 2C: 56.10 >55% EF BiP: 54.70 >55% Mitral Valve MV Pk E: 0.61 MV PK A: 0.62 MV Decel Time: 236.00 E/A: 1.00 E'Lateral: 5.66 E'Medial: 5.44 E/E' Med: 11.20 E/E' Lat: 10.70 PHT: 69.00 MVA PHT: 3.19 Decel [place]: 2.58 Aortic Valve AoV Pk Yonathan: 1.35 AoV Mn Yonathan: 1.00 AoV VTI: 0.32 AoV Pk Grad: 7.00 Aov Mn Grad: 4.00 RIKKI Cont.VTI: 2.73 LVOT LVOT Pk Yonathan: 1.04 LVOT Mn Yonathan: 0.69 LVOT VTI: 0.21 LVOT Pk Grad: 4.00 LVOT Mn Grad: 2.00 LVOT Diam: 2.30 LVOT Area: 4.15 Diastolic Function MV Pk E: 0.61 MV Pk A: 0.62 E/A: 1.00 E'Medial: 5.44 E/E' Med: 11.20 E' Laterial: 5.66 E/E' Lat: 10.70 Right Ventricle TAPSE (mm): 20.90 TVS' Yonathan: 10.90 Tricuspid Valve TR Pk Yonathan: 1.55 TR Pk Grad: 10.00 RA Press: 15.00 RVSP: 25.00 Great Vessels Aorta Sinus of Valsalva: 3.32 2.0-3.[address] [place]: 2.83 1.7-3.4 cm Ao Asc: 3.30 2.1-3.4 cm Updated in Other Vendor System with Status of Final Paulino Reyes MD electronically signed on 08/12/2021 3:56:41 PM with status of Final
== END ==
LOC: HO.CARD 08:05
PROVIDERS: PCP Family Medicine; Visit Provider Internal Medicine Cardiovascular Disease
DX: I42.9 Cardiomyopathy, unspecified (principal)
CPT/HCPCS: 93306

== ENCOUNTER 2021-08-19 09:32 | Outpatient (REF) | payer MEDICAID, SELFPAY ==
--- NOTE | ~2021-08-19 | MR_ITS ---
EXAMINATION: MRI FOOT WITH AND WITHOUT CONTRAST, LEFT CLINICAL INFORMATION: Nonhealing wound. Osteomyelitis. COMPARISON: Radiograph dated 03/11/2021 and MRI dated 05/21/2013. TECHNIQUE: Multiplanar MR imaging was obtained through the left foot on a 1.5 S[place]a magnet before and after intravenous administration of 10 mL Gadavist. FINDINGS: Great toe is surgically absent the level of the metatarsal neck. Chronic deformity is again noted at the 2nd and 3rd metatarsals and at the associated proximal phalangeal bases, likely the result of prior trauma. There is soft tissue swelling, enhancement, and edema signal at the plantar and medial margins of the forefoot at the distal margin of the1st metatarsal. Skin breakdown is suspected both at the medial and plantar margins in this region. There is a thin fluid collection at the plantar margin of the distal aspect of the 1st metatarsal measuring 2.2 x 1 x 0.3 cm. This demonstrates mild peripheral enhancement and may correspond to an abscess with low-grade inflammation, though an adventitious bursa can also have this appearance. An inflamed adventitious bursa is also possible. Bone marrow signal is normal. No evidence of osteomyelitis. 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 There is diffuse atrophy and fatty replacement of the intrinsic foot musculature. Mild residual increased T2 signal within these muscles is likely related to denervation from underlying diabetes. No infectious tenosynovitis. Plantar plate tear is evident at the 3rd MTP joint with loss of the subcutaneous fat in the plantar soft tissues the metatarsal head from the skin. MR/MR foot LT wo/w con IMPRESSION: Skin and subcutaneous soft tissue inflammation at the medial and plantar margins of the 1st metatarsal at its distal amputated margin. A thin collection of fluid with mild peripheral enhancement is present at the plantar aspect of the distal margin of the 1st metatarsal and may correspond to a sterile adventitious bursa or an abscess based both on location and the adjacent wound. No osteomyelitis.
== END 2021-08-19 09:33 | disposition home or self-care (01) ==
LOC: HO.MRI 09:32
PROVIDERS: Visit Provider Physician Assistant
DX: E11.621 Type 2 diabetes mellitus with foot ulcer (principal); L97.522 Non-pressure chronic ulcer of other part of left foot with fat layer exposed
CPT/HCPCS: 73720; A9585

== ENCOUNTER → 2021-08-21 09:03 | Outpatient (BNVA) | payer MEDICAID, SELFPAY | PROVIDERS: PCP Family Medicine; Referring Provider Family Medicine; Visit Provider Internal Medicine Cardiovascular Disease | DX: I48.0 Paroxysmal atrial fibrillation (principal); I10 Essential (primary) hypertension | CPT/HCPCS: 93005; 99212 ==

== ENCOUNTER → 2021-09-26 08:18 | Outpatient (BNVA) | payer MEDICAID, SELFPAY | PROVIDERS: PCP Family Medicine; Visit Provider Surgery | DX: L02.612 Cutaneous abscess of left foot (principal); Z89.412 Acquired absence of left great toe; Z89.421 Acquired absence of other right toe(s) | CPT/HCPCS: 99202 ==

== ENCOUNTER → 2021-11-27 09:55 | Outpatient (BNVA) | payer MEDICAID, SELFPAY | PROVIDERS: PCP Family Medicine; Referring Provider Family Medicine; Visit Provider Internal Medicine Cardiovascular Disease | DX: I48.91 Unspecified atrial fibrillation (principal); Z79.899 Other long term (current) drug therapy | CPT/HCPCS: 93005 ==

== ENCOUNTER 2021-11-30 08:45 | Outpatient (REF) | payer MEDICAID, SELFPAY ==
[2021-11-30 11:13] LABS: MANUAL DIFF FLAG NO
[2021-11-30 11:18] LABS: Basophils Absolute Auto 0.1 X10*3/uL (0.0-0.2); Basophils Percent Auto 0.8 % (0-2); Eosinophils Absolute Auto 0.4 X10*3/uL (0.0-0.4); Eosinophils Percent Auto 3.7 % (0-4); Hematocrit 39.3 % (42.0-52.0); Hemoglobin 12.6 g/dl (14.0-18.0); Imm Gran Abs Auto 0.05 X10*3/uL (0.00-0.03); Imm Gran Pct Auto 0.5 % (0.0-0.4); Lymphocytes Absolute Auto 2.3 X10*3/uL (1.2-4.9); Mean Corpuscular HGB Conc 32.1 g/dl (31.0-36.0); Mean Corpuscular Hemoglobin 30.5 pg (27.0-33.0); Mean Corpuscular Volume 95.2 fL (80.0-98.0); Mean Platelet Volume 11.5 fL (9.4-12.4); Monocytes Absolute Auto 1.1 X10*3/uL (0.1-1.2); Monocytes Percent Auto 10.7 % (2-11); Neutrophils Absolute Auto 6.4 x10*3/uL (2.0-8.3); Neutrophils Percent Auto 62.3 % (45-73); Platelet Count 225 X10*3/uL (160-400); Red Blood Count 4.13 X10*6/uL (4.60-5.80); Red Cell Distribution Width 13.5 % (11.0-16.0); White Blood Count 10.2 X10*3/uL (4.8-10.8)
[2021-11-30 11:38] LABS: Estimated Average Glucose 137 mg/dL; Hemoglobin A1c % 6.4 %
[2021-11-30 11:50] LABS: Alanine Aminotransferase 14 U/L (0-40); Albumin Level 3.8 g/dL (3.5-5.0); Alkaline Phosphatase 78 U/L (39-117); Anion Gap 16 (12-20); Aspartate Amino Transferase 13 U/L (5-37); Bilirubin Total 0.5 mg/dL (0.0-1.0); Blood Urea Nitrogen 19 mg/dL (9-16); Calcium 8.5 mg/dL (8.4-10.2); Carbon Dioxide 22 mmol/L (22-29); Chloride 106 mmol/L (96-108); Cholesterol 91 mg/dL; Estimated Glomerular Filt Rate > 60; Glucose Random 111 mg/dL (60-115); HDL Cholesterol 32 mg/dL; LDL Cholesterol Calculated 29 mg/dl; Potassium 4.9 mmol/L (3.3-5.1); Sodium 139 mmol/L (135-145); Total Protein 7.1 g/dL (6.5-8.0); Triglycerides 153 mg/dL
[2021-11-30 11:55] LABS: TSH reflex Free T4 2.28 uIU/mL (0.32-4.0)
[2021-11-30 11:58] LABS: Anion Gap 16 (12-20); Blood Urea Nitrogen 20 mg/dL (9-16); C Reactive Protein 0.56 mg/dL (< or = 0.50); Calcium 8.7 mg/dL (8.4-10.2); Carbon Dioxide 23 mmol/L (22-29); Chloride 107 mmol/L (96-108); Estimated Glomerular Filt Rate > 60; Glucose Random 109 mg/dL (60-115); Potassium 5.2 mmol/L (3.3-5.1); Sodium 141 mmol/L (135-145)
[2021-11-30 12:04] LABS: Vitamin B12 251 pg/mL (200-900)
[2021-11-30 12:09] LABS: Erythrocyte Sedimentation Rate 18 MM/HR (0-15)
== END 2021-11-30 08:46 | disposition home or self-care (01) ==
LOC: HO.HMGCLDS 08:45
PROVIDERS: Absent Provider Physician Assistant; PCP Family Medicine; Visit Provider Family Medicine
DX: D36.9 Benign neoplasm, unspecified site (principal); E11.42 Type 2 diabetes mellitus with diabetic polyneuropathy; E78.5 Hyperlipidemia, unspecified; I25.10 Atherosclerotic heart disease of native coronary artery without angina pectoris; I48.91 Unspecified atrial fibrillation; J44.9 Chronic obstructive pulmonary disease, unspecified; T14.8XXA Other injury of unspecified body region, initial encounter; X58.XXXA Exposure to other specified factors, initial encounter; Y93.9 Activity, unspecified; Y92.9 Unspecified place or not applicable; Y99.9 Unspecified external cause status
CPT/HCPCS: 36415; 80048; 80053; 80061; 82607; 83036; 84134; 84443; 85025; 85652; 86140

== ENCOUNTER → 2022-02-07 09:47 | Outpatient (BNVA) | payer MEDICAID, SELFPAY | PROVIDERS: PCP Family Medicine; Referring Provider Family Medicine; Visit Provider Internal Medicine Cardiovascular Disease | DX: I48.0 Paroxysmal atrial fibrillation (principal); I10 Essential (primary) hypertension | CPT/HCPCS: 93005; 99212 ==

== ENCOUNTER → 2022-05-12 09:03 | Outpatient (BNVA) | payer MEDICAID, SELFPAY | PROVIDERS: PCP Family Medicine; Referring Provider Family Medicine; Visit Provider Internal Medicine Cardiovascular Disease | DX: Z13.89 Encounter for screening for other disorder (principal) ==

== ENCOUNTER → 2022-05-16 16:00 | Outpatient (RCR) | payer MEDICAID, SELFPAY ==
[2021-03-11 11:53] LABS: MANUAL DIFF FLAG NO
[2021-03-11 12:04] LABS: Basophils Percent Auto 0.4 % (0-2); Eosinophils Absolute Auto 0.3 X10*3/uL (0.0-0.4); Eosinophils Percent Auto 2.5 % (0-4); Hematocrit 39.5 % (42.0-52.0); Hemoglobin 12.8 g/dl (14.0-18.0); Imm Gran Abs Auto 0.05 X10*3/uL (0.00-0.03); Imm Gran Pct Auto 0.5 % (0.0-0.4); Lymphocytes Absolute Auto 1.9 X10*3/uL (1.2-4.9); Lymphocytes Percent Auto 17.6 % (20-40); Mean Corpuscular HGB Conc 32.4 g/dl (31.0-36.0); Mean Corpuscular Volume 95.6 fL (80.0-98.0); Mean Platelet Volume 10.5 fL (9.4-12.4); Monocytes Absolute Auto 0.8 X10*3/uL (0.1-1.2); Monocytes Percent Auto 7.2 % (2-11); Neutrophils Absolute Auto 7.8 x10*3/uL (2.0-8.3); Neutrophils Percent Auto 71.8 % (45-73); Platelet Count 235 X10*3/uL (160-400); Red Blood Count 4.13 X10*6/uL (4.60-5.80); Red Cell Distribution Width 13.1 % (11.0-16.0); White Blood Count 10.8 X10*3/uL (4.8-10.8)
[2021-03-11 12:35] LABS: Anion Gap 15 (12-20); Blood Urea Nitrogen 12 mg/dL (9-16); C Reactive Protein 0.58 mg/dL (< or = 0.50); Calcium 9.3 mg/dL (8.4-10.2); Carbon Dioxide 23 mmol/L (22-29); Chloride 107 mmol/L (96-108); Estimated Glomerular Filt Rate > 60; Glucose Random 172 mg/dL (60-115); Potassium 4.7 mmol/L (3.3-5.1); Sodium 140 mmol/L (135-145)
[2021-03-11 12:37] LABS: Estimated Average Glucose 128 mg/dL; Hemoglobin A1c % 6.1 %
[2021-03-11 13:15] LABS: Erythrocyte Sedimentation Rate 25 MM/HR (0-15)
[2021-06-17 13:21] LABS: MANUAL DIFF FLAG NO
[2021-06-17 13:28] LABS: Basophils Absolute Auto 0.1 X10*3/uL (0.0-0.2); Basophils Percent Auto 0.5 % (0-2); Eosinophils Absolute Auto 0.2 X10*3/uL (0.0-0.4); Eosinophils Percent Auto 2.1 % (0-4); Hematocrit 41.4 % (42.0-52.0); Imm Gran Abs Auto 0.07 X10*3/uL (0.00-0.03); Imm Gran Pct Auto 0.6 % (0.0-0.4); Lymphocytes Absolute Auto 2.8 X10*3/uL (1.2-4.9); Lymphocytes Percent Auto 24.4 % (20-40); Mean Corpuscular HGB Conc 31.4 g/dl (31.0-36.0); Mean Corpuscular Hemoglobin 29.7 pg (27.0-33.0); Mean Corpuscular Volume 94.7 fL (80.0-98.0); Mean Platelet Volume 11.4 fL (9.4-12.4); Monocytes Absolute Auto 0.9 X10*3/uL (0.1-1.2); Monocytes Percent Auto 7.8 % (2-11); Neutrophils Absolute Auto 7.5 x10*3/uL (2.0-8.3); Neutrophils Percent Auto 64.6 % (45-73); Platelet Count 255 X10*3/uL (160-400); Red Blood Count 4.37 X10*6/uL (4.60-5.80); Red Cell Distribution Width 13.3 % (11.0-16.0); White Blood Count 11.6 X10*3/uL (4.8-10.8)
[2021-06-17 13:39] LABS: Anion Gap 13 (12-20); Blood Urea Nitrogen 15 mg/dL (9-16); C Reactive Protein 0.37 mg/dL (< or = 0.50); Calcium 9.2 mg/dL (8.4-10.2); Carbon Dioxide 28 mmol/L (22-29); Chloride 103 mmol/L (96-108); Estimated Glomerular Filt Rate > 60; Glucose Random 300 mg/dL (60-115); Potassium 4.4 mmol/L (3.3-5.1); Sodium 140 mmol/L (135-145)
[2021-06-17 14:05] LABS: Erythrocyte Sedimentation Rate 20 MM/HR (0-15)
[2021-06-17 14:07] LABS: Estimated Average Glucose 137 mg/dL; Hemoglobin A1c % 6.4 %
[2021-08-05 13:12] LABS: MANUAL DIFF FLAG NO
[2021-08-05 13:21] LABS: Basophils Absolute Auto 0.1 X10*3/uL (0.0-0.2); Basophils Percent Auto 0.7 % (0-2); Eosinophils Absolute Auto 0.2 X10*3/uL (0.0-0.4); Eosinophils Percent Auto 2.3 % (0-4); Hematocrit 43.4 % (42.0-52.0); Hemoglobin 14.2 g/dl (14.0-18.0); Imm Gran Abs Auto 0.05 X10*3/uL (0.00-0.03); Imm Gran Pct Auto 0.5 % (0.0-0.4); Lymphocytes Absolute Auto 2.1 X10*3/uL (1.2-4.9); Lymphocytes Percent Auto 23.2 % (20-40); Mean Corpuscular HGB Conc 32.7 g/dl (31.0-36.0); Mean Corpuscular Hemoglobin 31.3 pg (27.0-33.0); Mean Corpuscular Volume 95.8 fL (80.0-98.0); Monocytes Absolute Auto 0.7 X10*3/uL (0.1-1.2); Monocytes Percent Auto 8.1 % (2-11); Neutrophils Percent Auto 65.2 % (45-73); Platelet Count 230 X10*3/uL (160-400); Red Blood Count 4.53 X10*6/uL (4.60-5.80); Red Cell Distribution Width 13.5 % (11.0-16.0); White Blood Count 9.2 X10*3/uL (4.8-10.8)
[2021-08-05 13:38] LABS: Anion Gap 14 (12-20); Blood Urea Nitrogen 13 mg/dL (9-16); C Reactive Protein 0.53 mg/dL (< or = 0.50); Calcium 9.1 mg/dL (8.4-10.2); Carbon Dioxide 23 mmol/L (22-29); Chloride 107 mmol/L (96-108); Estimated Glomerular Filt Rate > 60; Glucose Random 148 mg/dL (60-115); Sodium 139 mmol/L (135-145)
[2021-08-05 13:41] LABS: Estimated Average Glucose 134 mg/dL; Hemoglobin A1c % 6.3 %
[2021-08-05 14:03] LABS: Erythrocyte Sedimentation Rate 23 MM/HR (0-15)
--- NOTE | ~2022-05-16 | XR_ITS ---
EXAMINATION: XR FOOT, LEFT CLINICAL INFORMATION: Nonhealing left foot wound. COMPARISON: 04/27/2020 and 02/20/2018 TECHNIQUE: AP, lateral, and oblique views of the left foot. FINDINGS: There is osteopenia of the visualized bones. Patient is status post 1st transmetatarsal amputation. There appears to be a soft tissue defect overlying the distal aspect of the 1st metatarsal. The surgical site appears to be well circumscribed without definite erosive change. No definite gas within the soft tissues is appreciated. Healed fracture again noted involving the 2nd metatarsal. There is degenerative change involving the 3rd metatarsophalangeal joint with articular irregularity without significant change from study of 04/27/2020. No acute fractures appreciated. XR/XR foot LT min 3V IMPRESSION: Stable appearance of the left foot status post transmetatarsal amputation of the 1st toe with question soft tissue defect just distal to the 1st metatarsal without gas in the soft tissues and without erosive change with no definite evidence of acute osteomyelitis. Chronic findings, as described.
== END | disposition home or self-care (01) ==
LOC: HO.WCC 02-25 08:03
PROVIDERS: PCP Family Medicine; Visit Provider Physician Assistant
DX: E11.621 Type 2 diabetes mellitus with foot ulcer (principal); L97.522 Non-pressure chronic ulcer of other part of left foot with fat layer exposed; E11.40 Type 2 diabetes mellitus with diabetic neuropathy, unspecified; F17.210 Nicotine dependence, cigarettes, uncomplicated; L84 Corns and callosities; Z89.412 Acquired absence of left great toe; Z89.421 Acquired absence of other right toe(s); Z89.422 Acquired absence of other left toe(s)
CPT/HCPCS: 11042; 15275; 29445; 36415; 73630; 80048; 83036; 84134; 85025; 85652; 86140; 97597; 99212; Q4187

== ENCOUNTER 2022-07-18 09:37 | Outpatient (REF) | payer MEDICAID, SELFPAY ==
[2022-07-18 10:58] LABS: MANUAL DIFF FLAG NO
[2022-07-18 11:03] LABS: Basophils Absolute Auto 0.1 X10*3/uL (0.0-0.2); Basophils Percent Auto 0.6 % (0-2); Eosinophils Absolute Auto 0.2 X10*3/uL (0.0-0.4); Eosinophils Percent Auto 2.2 % (0-4); Hematocrit 41.2 % (42.0-52.0); Hemoglobin 13.5 g/dl (14.0-18.0); Imm Gran Abs Auto 0.03 X10*3/uL (0.00-0.03); Imm Gran Pct Auto 0.3 % (0.0-0.4); Lymphocytes Absolute Auto 1.8 X10*3/uL (1.2-4.9); Lymphocytes Percent Auto 20.4 % (20-40); Mean Corpuscular HGB Conc 32.8 g/dl (31.0-36.0); Mean Corpuscular Volume 94.5 fL (80.0-98.0); Mean Platelet Volume 11.4 fL (9.4-12.4); Monocytes Absolute Auto 0.8 X10*3/uL (0.1-1.2); Monocytes Percent Auto 9.1 % (2-11); Neutrophils Percent Auto 67.4 % (45-73); Platelet Count 243 X10*3/uL (160-400); Red Blood Count 4.36 X10*6/uL (4.60-5.80); Red Cell Distribution Width 13.3 % (11.0-16.0); White Blood Count 8.9 X10*3/uL (4.8-10.8)
[2022-07-18 11:18] LABS: Alanine Aminotransferase 14 U/L (0-40); Albumin Level 3.9 g/dL (3.5-5.0); Alkaline Phosphatase 74 U/L (39-117); Anion Gap 14 (12-20); Aspartate Amino Transferase 15 U/L (5-37); Bilirubin Direct 0.3 mg/dL (0.0-0.5); Bilirubin Total 0.7 mg/dL (0.0-1.0); Blood Urea Nitrogen 14 mg/dL (9-16); Calcium 8.6 mg/dL (8.4-10.2); Carbon Dioxide 23 mmol/L (22-29); Chloride 107 mmol/L (96-108); Cholesterol 96 mg/dL; Estimated Glomerular Filt Rate 55; Glucose Random 120 mg/dL (60-115); HDL Cholesterol 27 mg/dL; LDL Cholesterol Calculated 51 mg/dl; Potassium 4.4 mmol/L (3.3-5.1); Sodium 140 mmol/L (135-145); Total Protein 6.8 g/dL (6.5-8.0); Triglycerides 92 mg/dL
[2022-07-18 12:46] LABS: Creatinine Urine 161.29 mg/dL; Microalbum/Creatinine Ratio Ur 27.2 ug/mg cr
== END 2022-07-18 09:38 | disposition home or self-care (01) ==
LOC: HO.10HDL 09:37
PROVIDERS: Visit Provider Family Medicine
DX: R53.83 Other fatigue (principal); E11.9 Type 2 diabetes mellitus without complications; E78.00 Pure hypercholesterolemia, unspecified
CPT/HCPCS: 36415; 80048; 80061; 80076; 82043; 85025

== ENCOUNTER 2022-07-28 11:10 | Outpatient (REF) | payer MEDICAID, SELFPAY ==
--- NOTE | ~2022-07-28 | MR_ITS ---
EXAMINATION: MRI FOOT WITHOUT AND WITH CONTRAST, LEFT CLINICAL INFORMATION: Nonhealing wound. Evaluate for osteomyelitis of the 1st metatarsal head. COMPARISON: Radiographs 06/18/2022. MRI 08/19/2021. TECHNIQUE: MRI without and with intravenous administration of 10 mL of Gadavist is performed on the left foot. FINDINGS: Postsurgical changes with amputation of the great toe and 1st metatarsal head. There is a shallow soft tissue ulceration at the plantar/medial aspect of the distal 1st metatarsal with a small fluid collection that abuts the plantar/medial aspect of the metatarsal osteotomy. However, there are no marrow changes to suggest osteomyelitis. Foci of marrow edema at the medial aspect of the navicular, dorsal/proximal aspect of the middle cuneiform, plantar aspect of the 2nd metatarsal base, and the 4th metatarsal base may be stress related, degenerative, or posttraumatic. No discrete fracture lines. Chronic healed fracture deformity of the distal 2nd and 3rd metatarsals. MR/MR foot LT wo/w con IMPRESSION: Shallow soft tissue ulceration and small subcutaneous collection at the plantar/medial aspect of the distal 1st metatarsal with no evidence of osteomyelitis.
== END 2022-07-28 11:11 | disposition home or self-care (01) ==
LOC: HO.MRI 11:10
PROVIDERS: Visit Provider Physician Assistant
DX: E11.621 Type 2 diabetes mellitus with foot ulcer (principal); L97.522 Non-pressure chronic ulcer of other part of left foot with fat layer exposed
CPT/HCPCS: 73720

== ENCOUNTER → 2022-07-30 10:29 | Outpatient (REF) | payer MEDICAID, SELFPAY ==
--- NOTE | 2022-07-30 10:31 | CA_ITS ---
Transthoracic Echocardiogram Patient (Last, First, Middle): yWatt Cohen F Gender: Male Date of : 1960 Age: 61 Procedure Date: 07/30/2022 Procedure Type: Transthoracic Echocardiogram Location: OP Height: 177.8 cm Weight: 113.4 kg BSA: 2.29 m2 Heart Rate: 60 bpm BP: 118 / 72 mmHg Senior Agricultural Assistant: RAYMOND Referring MD: Cortez Nava MD Heat Engineering Teacher: Cortez Nava MD Symptoms: I48.0 - Paroxysmal atrial fibrillation Study Quality: Fair but adequate ECG Rhythm: Sinus Conclusions: - 1. Normal LV systolic function with impaired relaxation filling pattern 2. Mild fibrocalcific aortic valve changes noted with normal cardiac valvular Doppler 3. No gross pericardial effusion Findings Procedure Information The quality of the study was technically difficult. The study quality is limited by patients body habitus. Left Ventricle Normal left ventricular size, thickness, and systolic function. The visually estimated ejection fraction is between 55-60%. Spectral Doppler is indicative of an impaired relaxation filling pattern. E/E prime ratio is between 8 and 15 consistent with indeterminate filling pressures. Right Ventricle Normal right ventricular cavity size and systolic function. Atria The left atrium is likely dilated. There is no evidence of interatrial shunt. The right atrium is normal in size. Aortic Valve There is mild calcification of the aortic valve. There is mild thickening of the aortic valve. There is no aortic valve stenosis. There is no aortic valve regurgitation. Mitral Valve There is mild anterior and posterior mitral leaflet thickening. There is trace mitral valve regurgitation. There is no mitral valve stenosis. Pulmonic Valve The pulmonic valve was not well visualized. Tricuspid Valve Likely normal tricuspid valve structure and function. There is trace tricuspid valve regurgitation. Tricuspid regurgitation envelope is inadequate for calculation of right ventricular systolic pressure. Normal right atrial pressure. Great Vessels All visible segments of the aorta are normal in size. The pulmonary artery was not well visualized. Venous The inferior vena cava is normal in size and collapses greater than 50% with inspiration. Pericardium/Pleural There is no evidence of pericardial effusion. Prior Study Comparison No significant change compared to prior study dated: 08/12/2021. Measurements 2D Linear Measurements IVSd: 1.11 0.6-0.9/0.6-1.0 cm LVIDd: 5.51 3.9-5.3/4.2-5.9 cm LVIDd Index: 2.41 2.4-3.2/2.2-3.1 cm/m2 LVIDs: 3.78 2.0-3.6 cm LVPWd: 0.71 0.7-1.1 cm LA Diam: 3.70 2.7-3.8/3.0-4.0 cm LAIDs Index: 1.62 1.5-2.3 cm/m2 LV Mass: 236.28 67-162/88-224 g LV Mass Index: 103.18 43-95/49-115 g/m2 LVOT Diam: 2.30 3.0+(-)1.3 cm 2D Systolic Function EF 4C: 60.50 >55% EF 2C: 55.00 >55% EF BiP: 58.70 >55% Mitral Valve MV Pk E: 0.51 MV PK A: 0.42 MV Decel Time: 233.00 E/A: 1.20 E'Lateral: 4.57 E'Medial: 4.68 E/E' Med: 11.00 E/E' Lat: 11.20 PHT: 68.00 MVA PHT: 3.24 Decel [place]: 2.21 Aortic Valve AoV Pk Yonathan: 1.51 AoV Mn Yonathan: 0.98 AoV VTI: 0.30 AoV Pk Grad: 9.00 Aov Mn Grad: 4.00 RIKKI Cont.VTI: 2.91 LVOT LVOT Pk Yonathan: 1.00 LVOT Mn Yonathan: 0.67 LVOT VTI: 0.21 LVOT Pk Grad: 4.00 LVOT Mn Grad: 2.00 LVOT Diam: 2.30 LVOT Area: 4.15 Diastolic Function MV Pk E: 0.51 MV Pk A: 0.42 E/A: 1.20 E'Medial: 4.68 E/E' Med: 11.00 E' Laterial: 4.57 E/E' Lat: 11.20 Right Ventricle TAPSE (mm): 18.00 TVS' Yonathan: 10.20 Tricuspid Valve RA Press: 3.00 Great Vessels Aorta Sinus of Valsalva: 3.20 2.0-3.5 cm Ao Asc: 3.40 2.1-3.4 cm Pulmonary Veins Pulm Vein S/D 1.20 Pulmonary Valve PV Pk Yonathan: 0.87 Peak PV Grad: 3.00 Updated in Other Vendor System with Status of Final Cortez Nava MD electronically signed on 07/31/2022 2:38:33 PM with status of Final
== END ==
LOC: HO.CARD 10:29
PROVIDERS: PCP Family Medicine; Visit Provider Internal Medicine Cardiovascular Disease
DX: I48.0 Paroxysmal atrial fibrillation (principal)
CPT/HCPCS: 93306

== ENCOUNTER → 2022-09-09 13:17 | Outpatient (BNVA) | payer MEDICAID, SELFPAY | PROVIDERS: PCP Family Medicine; Visit Provider Internal Medicine Cardiovascular Disease | DX: I48.0 Paroxysmal atrial fibrillation (principal); I10 Essential (primary) hypertension; R06.02 Shortness of breath | CPT/HCPCS: 93005; 99212 ==

== ENCOUNTER 2022-12-10 09:20 | Outpatient (AMB) | payer MEDICAID, SELFPAY ==
--- NOTE | 2022-12-10 09:48 | AM.OFFVISNUR ---
Intake Intake Visit Reasons: ekg per NS Intake Note: Pt here for f/up EKG. H/O afib. Feels good. No complaints. Cost And Sales Record Supervisor Required: No Accompanied by: Self / Same As Patient Allergies vancomycin [VANCOMYCIN] Allergy (Intermediate, Verified 09/26/21 09:11) ITCHING, RASH, hives Medication List - Last Reconciled 12/10/22 by Joanna Tony, RN atorvastatin 40 mg PO DAILY dronedarone (Multaq) 400 mg PO Q12H 90 days fluoxetine 20 mg PO DAILY metformin ER 750 mg PO BID metoprolol tartrate 100 mg PO BID morphine ER 30 mg PO BID rivaroxaban (Xarelto) 20 mg PO QPM Followed by:: Dr. Nava Nursing Note Pt is taking all meds as directed. EKG completed, EKG auto-reading normal sinus rhythm at [address] Nava's desk for review and signature. Office Procedures EKG [id number], Complete Coding Level of Care Code Est Pt Level 1 (36219) CPT Codes EKG - CPT: 25382-[id number], Complete ([id number]) Time Spent (min) 20 Comment EKG, Medication Reconciliation, Documentation, Education
== END 2022-12-10 09:52 | disposition home or self-care (01) ==
PROVIDERS: PCP Family Medicine; Visit Provider Internal Medicine Cardiovascular Disease
DX: I48.0 Paroxysmal atrial fibrillation (principal)
CPT/HCPCS: 93010

== ENCOUNTER → 2022-12-10 09:20 | Outpatient (BNVA) | payer MEDICAID, SELFPAY | PROVIDERS: PCP Family Medicine; Visit Provider Internal Medicine Cardiovascular Disease | DX: I48.91 Unspecified atrial fibrillation (principal) | CPT/HCPCS: 93005 ==

== ENCOUNTER → 2023-03-11 09:20 | Outpatient (BNVA) | payer MEDICAID, SELFPAY | PROVIDERS: PCP Family Medicine; Visit Provider Internal Medicine Cardiovascular Disease ==

== ENCOUNTER 2023-06-10 08:29 | Outpatient (REF) | payer MEDICAID, SELFPAY ==
[2023-06-10 10:46] LABS: Alanine Aminotransferase 15 U/L (0-40); Albumin Level 3.9 g/dL (3.5-5.0); Alkaline Phosphatase 91 U/L (39-117); Anion Gap 11 (12-20); Aspartate Amino Transferase 14 U/L (5-37); Bilirubin Direct 0.2 mg/dL (0.0-0.5); Bilirubin Total 0.5 mg/dL (0.0-1.0); Blood Urea Nitrogen 18 mg/dL (9-16); Calcium 9.1 mg/dL (8.4-10.2); Carbon Dioxide 28 mmol/L (22-29); Chloride 102 mmol/L (96-108); Cholesterol 106 mg/dL (<200); Estimated Glomerular Filt Rate > 60; Glucose Random 151 mg/dL (60-115); HDL Cholesterol 36 mg/dL (>40); LDL Cholesterol Calculated 46 mg/dL (<100); Potassium 4.9 mmol/L (3.3-5.1); Sodium 136 mmol/L (135-145); Total Protein 7.7 g/dL (6.5-8.0); Triglycerides 122 mg/dL (<150)
[2023-06-10 10:55] LABS: Creatinine Urine 88.76 mg/dL
[2023-06-10 11:00] LABS: HIV Num 1 1.23 S/CO (0.00-0.99); ~HepC Num1 0.11 S/CO (0.00-0.79); ~Hepatitis C Antibody Nonreactive (Nonreactive)
[2023-06-10 11:15] LABS: Folate 3.3 ng/mL (> or = 4.0); Vitamin B12 357 pg/mL (200-900)
[2023-06-10 12:28] LABS: HIV Num 2 1.28 S/CO; HIV Num 3 1.33 S/CO
[2023-06-10 12:34] LABS: HIV AB/AG Reactive (Nonreactive)
[2023-06-17 08:43] LABS: HIV 2 Antibody NEGATIVE; HIV-1 RNA TMA Qualitative Not Detected
[2023-06-17 08:44] LABS: HIV 1 Antibody NEGATIVE
== END 2023-06-10 08:30 | disposition home or self-care (01) ==
LOC: HO.10HDL 08:29
PROVIDERS: Visit Provider Family Medicine
DX: Z11.4 Encounter for screening for human immunodeficiency virus [HIV] (principal); Z11.3 Encounter for screening for infections with a predominantly sexual mode of transmission; E11.42 Type 2 diabetes mellitus with diabetic polyneuropathy
CPT/HCPCS: 36415; 80048; 80061; 80076; 82043; 82570; 82607; 82746; 86701; 86702; 86803; 87389; 93005

== ENCOUNTER 2023-06-10 08:59 | Outpatient (AMB) | payer MEDICAID, SELFPAY ==
--- NOTE | 2023-06-10 09:18 | AM.OFFVISNUR ---
Intake Intake Visit Reasons: EKG Allergies vancomycin [VANCOMYCIN] Allergy (Intermediate, Verified 09/26/21 09:11) ITCHING, RASH, hives Nursing Note EKG PT on Multaq 400 mg bid PT reports feeling Great. EKG left on DR Nava's desk for review. Office Procedures EKG [id number], Complete Coding CPT Codes EKG - CPT: 03444-[id number], Complete ([id number])
== END 2023-06-10 10:13 | disposition home or self-care (01) ==
PROVIDERS: PCP Family Medicine; Visit Provider Internal Medicine Cardiovascular Disease
DX: I44.0 Atrioventricular block, first degree (principal)
CPT/HCPCS: 93010

== ENCOUNTER 2023-09-14 14:15 | Outpatient (AMB) | payer MEDICAID, SELFPAY ==
--- NOTE | 2023-09-14 14:38 | MHC.OFFVIS ---
Vital Signs 09/14/23 14:39 Height 5 ft 11 in Weight 271 lb 2.697 oz BMI 37.8 BP 120/80 Blood Pressure Location Lt brachial Pulse 68 Intake Visit Reasons: 1 yr fu Intake Note: 1 year follow-up with ekg heart doing ok Rock Climbing Team Member Required: No Allergies vancomycin [VANCOMYCIN] Allergy (Intermediate, Verified 09/26/21 09:11) ITCHING, RASH, hives Medication List - Last Reconciled 09/14/23 by Cortez Nava MD atorvastatin 40 mg PO DAILY dronedarone (Multaq) 400 mg PO Q12H fluoxetine 20 mg PO DAILY metformin ER 750 mg PO BID metoprolol tartrate 100 mg PO BID morphine ER 30 mg PO BID rivaroxaban (Xarelto) 20 mg PO QPM HPI Comments Details: Wyatt comes for follow-up. He has been doing well from cardiac perspective. He had accidental injury last week very injured his left foot. Walking with crutches now. He said he is having increasing symptoms of fatigue and tiredness. He has not been using his CPAP for about couple years. Some increased congestion related to his COPD. Unfortunately continues to smoke. He has not had any further cardiac symptoms of prolonged palpitation irregular heartbeat. No lightheadedness, syncope. No overt bleeding issues. Denies any orthopnea, PND, leg edema. Takes all his medications regularly. No exertional chest pain. PFSH Medical History Amputated great toe Cardiomyopathy Diabetes HTN (hypertension) Obstructive sleep apnea Paroxysmal atrial fibrillation Peripheral vascular disease Persistent atrial fibrillation with rapid ventricular response Smoker Surgical History History of ankle surgery History of cardiac cath Family History Mother No problems noted. Father No problems noted. Family/Other Diabetes Sister Breast cancer Social History Alcohol intake: former Cigarette Packs Per Day: 0.5 Cigarettes Per Day: 10 Years Smoked: 45 years Review of Systems Const Denies chills, Denies fatigue, Denies fever(s), Denies frequent falls, Denies weakness, Denies weight gain and Denies weight loss ENT Denies dizziness Card Denies chest pain, Denies leg edema, Denies lightheadedness, Denies palpitations, Denies dyspnea, Denies dyspnea on exertion, Denies orthopnea and Denies other (loss of consciousness) Resp Denies cough, Denies dyspnea and Denies dyspnea on exertion GI Denies hematochezia and Denies change in stool character Musc Denies abnormal gait, Denies muscle weakness, Denies numbness, Denies radiating pain into limb and Denies tingling Neuro Denies abnormal gait, Denies dizziness, Denies frequent falls, Denies numbness, Denies tingling and Denies weakness Endo Denies fatigue and Denies palpitations Physical Exam Vital Signs: Last Vital Signs Pulse 68 09/14/23 14:39 BP 120/80 09/14/23 14:39 BMI result Body Mass Index 37.8 Const General: cooperative, comfortable, no acute distress, alert and awake Nutritional Appearance: obese Orientation/consciousness: patient oriented x3 Limitations: no limitations Neck Neck: Yes trachea midline, Yes supple and Yes no JVD Resp Effort & Inspection: normal respiratory effort Auscultation: clear to auscultation bilaterally and diminished lung sounds Cardio Jugular venous distension: no JVD Palpation: normal PMI Rate: regular rate Rhythm: abnormal rhythm with ectopic beats Heart sounds: S1 normal heart sound present and S2 normal heart sound present GI Auscultation: normal bowel sounds Skin General skin exam: no rashes or lesions noted Neuro General: patient oriented x3 and no focal motor deficits Extrem General: Yes no clubbing, cyanosis or edema Psych Appearance: grossly normal Office Procedures EKG Details: EKG shows normal sinus rhythm normal EKG at 68 beats per minute [id number], Complete Assessment & Plan Assessment & Plan (1) Paroxysmal atrial fibrillation: Code(s): I48.0 - Paroxysmal atrial fibrillation Category: Medical Plan: Highly symptomatic paroxysmal atrial fibrillation this middle-aged man which is controlled with Multaq therapy. Has done well with rhythm control with no hospitalization related to the same. Will continue with rhythm control approach at this point in time. Continue Multaq therapy. Will require EKGs every 3 months. Continue full oral anticoagulation, currently on Xarelto 20 mg daily. Annual CBC should be checked. He is complaining of fatigue and need to rule out anemia and hypothyroidism. I think however his fatigue is most likely related to untreated sleep apnea. Advised to consider restarting CPAP therapy. No signs or symptoms of heart failure at this point in time (2) HTN (hypertension): Code(s): I10 - Essential (primary) hypertension Category: Medical Plan: Hypertension is currently well optimized. Advised to monitor blood pressure at home and maintain a log. Goal blood pressure less than 130/84. Advised to re start CPAP therapy. Continue aggressive diabetes control goal hemoglobin A1c less than 7%. Complete smoking cessation was advised. Follow up in the clinic in 1 year with me. Every 3 months in between. Orders: Orders Basic Metabolic Panel Today I48.0 - Paroxysmal atrial fibrillation Complete Blood Count no Diff Today I48.0 - Paroxysmal atrial fibrillation TSH reflex Free T4 Today I48.0 - Paroxysmal atrial fibrillation Coding Level of Care Code Est Pt Level 4 (49161) Diagnoses Paroxysmal atrial fibrillation I48.0 HTN (hypertension) I10 CPT Codes EKG - CPT: 68554-[id number], Complete ([id number])
[2023-09-14 14:39] VITALS: BP 120/80; PULSE 68; BMI 37.8
== END 2023-09-14 15:06 | disposition home or self-care (01) ==
PROVIDERS: PCP Family Medicine; Visit Provider Internal Medicine Cardiovascular Disease
DX: I48.0 Paroxysmal atrial fibrillation (principal); I10 Essential (primary) hypertension
CPT/HCPCS: 93010; 99214

== ENCOUNTER → 2023-09-14 14:15 | Outpatient (BNVA) | payer MEDICAID, SELFPAY | PROVIDERS: PCP Family Medicine; Visit Provider Internal Medicine Cardiovascular Disease | DX: I48.0 Paroxysmal atrial fibrillation (principal); I10 Essential (primary) hypertension | CPT/HCPCS: 93005; 99212 ==

== ENCOUNTER 2023-12-09 09:49 | Outpatient (AMB) | payer MEDICAID, SELFPAY ==
--- NOTE | 2023-12-09 10:00 | AM.OFFVISNUR ---
Intake Visit Reasons: ekg Allergies vancomycin [VANCOMYCIN] Allergy (Intermediate, Verified 09/26/21 09:11) ITCHING, RASH, hives Nursing Note pt is here for nurse visit with ekg ekg showed normal sinus rhythm pt is on Multaq 400mg PO Q12H ekg left on providers desk for review Office Procedures EKG [id number], Complete
== END 2023-12-09 10:02 | disposition home or self-care (01) ==
PROVIDERS: PCP Family Medicine; Visit Provider Internal Medicine Cardiovascular Disease
DX: Z51.81 Encounter for therapeutic drug level monitoring (principal)
CPT/HCPCS: 93010

== ENCOUNTER → 2023-12-09 09:49 | Outpatient (BNVA) | payer MEDICAID, SELFPAY | PROVIDERS: PCP Family Medicine; Visit Provider Internal Medicine Cardiovascular Disease | DX: Z79.899 Other long term (current) drug therapy (principal) | CPT/HCPCS: 93005 ==

== ENCOUNTER 2024-03-16 09:42 | Outpatient (AMB) | payer MEDICAID, SELFPAY ==
--- NOTE | 2024-03-16 09:53 | AM.OFFVISNUR ---
Intake Visit Reasons: ekg Allergies vancomycin [VANCOMYCIN] Allergy (Intermediate, Verified 09/26/21 09:11) ITCHING, RASH, hives Nursing Note pt is here for nurse visit with ekg pt is doing good pt is on dronedarone 400 mg PO Q12H ekg left on RECORD TABULATING CLERK [place] desk for reivew Office Procedures EKG [id number], Complete
== END 2024-03-16 09:55 | disposition home or self-care (01) ==
PROVIDERS: PCP Family Medicine; Visit Provider Internal Medicine Cardiovascular Disease
DX: I49.9 Cardiac arrhythmia, unspecified (principal)
CPT/HCPCS: 93010

== ENCOUNTER → 2024-03-16 09:42 | Outpatient (BNVA) | payer MEDICAID, SELFPAY | PROVIDERS: PCP Family Medicine; Visit Provider Internal Medicine Cardiovascular Disease | DX: Z79.899 Other long term (current) drug therapy (principal) | CPT/HCPCS: 93005 ==

== ENCOUNTER → 2024-09-06 09:41 | Outpatient (REF) | payer MEDICAID, SELFPAY ==
--- NOTE | 2024-09-06 09:45 | CA_ITS ---
Transthoracic Echocardiogram Patient (Last, First, Middle): Wyatt Cohen F Gender: Male Date of : 1960 Age: 63 Procedure Date: 09/06/2024 Procedure Type: Transthoracic Echocardiogram Location: OP Height: 180.34 cm Weight: 113.4 kg BSA: 2.32 m2 Heart Rate: 63 bpm BP: 130 / 82 mmHg Oil Inspector: RAYMOND Referring MD: Cortez Nava MD [employer]: Cortez Nava MD Symptoms: I48.0 - Paroxysmal atrial fibrillation Study Quality: Technically Difficult ECG Rhythm: Sinus Conclusions: - 1. Technically limited study. 2. Normal LV ejection fraction of 60-65% with impaired relaxation filling pattern 3. Cardiac valvular Dopplers within normal limits Findings Procedure Information Contrast agent, definity, is being given per protocol without apparent complications. Left Ventricle Normal left ventricular size, thickness, and systolic function. The visually estimated ejection fraction is between 60-65%. Spectral Doppler is indicative of an impaired relaxation filling pattern. Right Ventricle The right ventricle was not well visualized. Atria The left atrium was not well visualized. Interatrial shunt cannot be excluded. The right atrium was not well visualized. Aortic Valve The aortic valve structure and function is likely normal. There is mild calcification of the aortic valve. There is no aortic valve stenosis. There is no aortic valve regurgitation. Mitral Valve The mitral valve was not well visualized. There is no mitral valve regurgitation. There is no mitral valve stenosis. Pulmonic Valve The pulmonic valve was not well visualized. Tricuspid Valve The tricuspid valve was not well visualized. Tricuspid regurgitation envelope is inadequate for calculation of right ventricular systolic pressure. Great Vessels All visible segments of the aorta are normal in size. The pulmonary artery was not well visualized. There is no dilatation of the ascending aorta measuring 3.40 cm. Venous The inferior vena cava is normal in size and collapses greater than 50% with inspiration. Pericardium/Pleural The pericardium was not well visualized. Prior Study Comparison No significant change compared to prior study dated: 07/30/2022. Measurements 2D Linear Measurements IVSd: 1.02 0.6-0.9/0.6-1.0 cm LVIDd: 5.77 3.9-5.3/4.2-5.9 cm LVIDd Index: 2.49 2.4-3.2/2.2-3.1 cm/m2 LVIDs: 3.81 2.0-3.6 cm LVPWd: 0.88 0.7-1.1 cm LA Diam: 4.10 2.7-3.8/3.0-4.0 cm LAIDs Index: 1.77 1.5-2.3 cm/m2 LV Mass: 269.67 67-162/88-224 g LV Mass Index: 116.24 43-95/49-115 g/m2 LVOT Diam: 2.30 3.0+(-)1.3 cm 2D Systolic Function EF 4C: 62.80 >55% EF 2C: 54.60 >55% EF BiP: 60.30 >55% Mitral Valve MV Pk E: 0.59 MV PK A: 0.62 MV Decel Time: 291.00 E/A: 0.90 E'Lateral: 5.77 E'Medial: 4.35 E/E' Med: 13.50 E/E' Lat: 10.20 PHT: 85.00 MVA PHT: 2.59 Decel [place]: 2.02 Aortic Valve AoV Pk Yonathan: 1.51 AoV Pk Grad: 9.00 RIKKI: 3.35 LVOT LVOT Pk Yonathan: 1.11 LVOT Mn Yonathan: 0.81 LVOT VTI: 0.23 LVOT Pk Grad: 5.00 LVOT Mn Grad: 3.00 LVOT Diam: 2.30 LVOT Area: 4.15 Diastolic Function MV Pk E: 0.59 MV Pk A: 0.62 E/A: 0.90 E'Medial: 4.35 E/E' Med: 13.50 E' Laterial: 5.77 E/E' Lat: 10.20 Right Ventricle TVS' Yonathan: 13.40 Tricuspid Valve RA Press: 3.00 Great Vessels Aorta Sinus of Valsalva: 3.30 2.0-3.5 cm Ao Asc: 3.40 2.1-3.4 cm Pulmonary Valve PV Pk Yonathan: 0.90 Peak PV Grad: 3.00 Updated in Other Vendor System with Status of Final oCrtez Nava MD electronically signed on 09/07/2024 4:09:54 PM with status of Final
--- OUTSIDE RECORDS SUMMARY | 2024-09-06 10:44 | XMS_ITS | Encounter Summary ---
Author Organization [employer] Address [address] [facility] 7[address] [place] [address] Care Team Providers Care Dispute Resolution Specialist Name Role Phone Elina Webb MD Primary Care Provider [phone] Alvarez Chandler DPM Unavailable [phone] José De Santiago MD Unavailable [phone] Reason for Visit * Reason Onset Date Comments Med Refill 11/16/2023 Encounter Details Date Type Department Care Team (Late st Contact Info) Description 11/16/2023 Telephone [facility] MEDICINE [address] [place], [place] [phone] Elina Webb MD [address] [place], [place] [phone] Med Refill Social History Tobacco Use Types Packs/Day Years Used Date Smoking Tobacco: Every Day Cigarettes Alcohol Use Standard Drinks/Week Comments Not Currently 0 (1 standard drink = 0.6 oz pur e alcohol) Depression Answer Date Recorded Patient Health Questionnaire-9 Score 0 04/24/2023 Patient Health Questionnaire-9 Score 0 04/24/2023 Last PHQ-9: Questionnaire Data Not on file 0 04/24/2023 Housing Stability Answer Date Recorded What is your housing situation today? I have nissa willis 04/24/[address] you li ve. Do you have problems with any of the following? None of the above 04/24/2023 Food Insecurity Answer Date Recorded Within the past 12 months, y ou worried that your food would run out before you got money to buy more: Never True 04/24/2023 Within the past 12 months,th e food you bought just didn't last and you didn't have enough money to get more: Never True Transportation Answer Date Recorded In the past 12 months, has l ack of transportation kept you from medical appts, meetings, work or from getting things needed for daily living? No 04/24/2023 Utilities Answer Date Recorded In the past 12 months, has t he electric, gas, oil or water company threatened to shut off services in your home? No 04/24/2023 Depression Answer Date Recorded Patient Health Questionnaire-2 Score 0 04/24/2023 Sex and Gender Information Value Date Recorded Sex Assigned at Male 01/27/2022 10:16 AM EDT Legal Sex Male 10:16 AM EDT Gender Identity Male 01/27/2022 10:16 AM EDT Sexual Orientation Straight 01/27/2022 10 :16 AM EDT documented as of this encounter Miscellaneous Notes * Telephone Encounter - Chel Oleary - 11/16/2023 8:59 AM EDT TC from pt requesting medication refill. Medications needing refill : morphine (MSIR) 30 MG tablet morphine CR (MS Contin) 30 MG 12 hr tablet To be sent to: [id number] AT [facility] documented in this encounter Plan of Treatment Upcoming Encounters Date Type Department Care Team ([facility] Contact Info) Description 11/07/2024 10:30 AM EDT Telemedicine [facility] [address] [place] [address] Sadie Baird RN [address] [place] [address] documented as of this encounter Visit Diagnoses Not on filedocumented in this encounter Additional Health Concerns Assessment Noted Time PHQ-9 Depression Total Score: 0 04/24/19 24 11:11 AM EST documented as of this encounter Care Teams Dispute Resolution Specialist Relationship Specialty Start Date End Date Elina Webb MD [address] [place] [address] [phone] PCP - General Family Medicine 03/30/18 Alvraez Chandler DPM [address] [place] [address] [address] [place] [address] Podiatry 04/22/24 José De Santiago MD [address] [place] [address] [address] [place] [address] Ophthalmology 05/18/24 documented as of this encounter
== END ==
LOC: HO.CARD 09:41
PROVIDERS: PCP Family Medicine; Visit Provider Internal Medicine Cardiovascular Disease
DX: I48.0 Paroxysmal atrial fibrillation (principal)
CPT/HCPCS: 93306; Q9957

== ENCOUNTER → 2024-09-06 09:45 | Outpatient (BNV) | payer MEDICAID, SELFPAY | PROVIDERS: PCP Family Medicine; Visit Provider Internal Medicine Cardiovascular Disease | DX: I35.8 Other nonrheumatic aortic valve disorders (principal); I42.8 Other cardiomyopathies; I48.0 Paroxysmal atrial fibrillation | CPT/HCPCS: 93306 ==

== ENCOUNTER 2024-10-03 10:35 | Outpatient (AMB) | payer MEDICAID, SELFPAY ==
--- NOTE | 2024-10-03 10:47 | MHC.OFFVIS ---
Vital Signs 10/03/24 10:48 Height 5 ft 11 in Weight 266 lb 12.149 oz BMI 37.2 BP 128/68 Blood Pressure Location Lt brachial Position Sitting Pulse 74 Intake Visit Reasons: r/s 09/19/24 1 yr followup w/ekg Intake Note: 1 year follow-up with ekg hearts ok Allergies vancomycin (VANCOMYCIN) Allergy (Intermediate, Verified 09/26/21 09:11) ITCHING, RASH, hives Medication List - Last Reconciled 10/03/24 by Cortez Nava MD atorvastatin 40 mg PO DAILY dronedarone (Multaq) 400 mg PO Q12H fluoxetine 20 mg PO DAILY metformin ER 750 mg PO BID metoprolol tartrate 100 mg PO BID morphine ER 30 mg PO BID rivaroxaban (Xarelto) 20 mg PO QPM HPI Comments Details: Wyatt comes for follow-up. He has been doing well from cardiac perspective. He has not had any cardiac symptoms. He said he does get more short of breath walking up a flight of stairs although he has not been exercising due to his joint issues. He has not had any prolonged palpitation irregular heartbeat. No bleeding issues or neurologic events. No exertional chest pain. Takes all his medications. He is now has been using his CPAP. He has not been able to lose much weight. [facility] Medical History Smoker Cardiomyopathy Obstructive sleep apnea HTN (hypertension) Peripheral vascular disease Paroxysmal atrial fibrillation Persistent atrial fibrillation with rapid ventricular response Amputated great toe Diabetes Surgical History History of ankle surgery History of cardiac cath Family History Mother No problems noted. Father No problems noted. Family/Other Diabetes Sister Breast cancer Social History Alcohol intake: former Cigarette Packs Per Day: 0.5 Cigarettes Per Day: 10 Years Smoked: 45 years Review of Systems Const Denies chills, Denies fatigue, Denies fever(s), Denies frequent falls, Denies weakness, Denies weight gain and Denies weight loss ENT Denies dizziness Card Denies chest pain, Denies leg edema, Denies lightheadedness, Denies palpitations, Denies dyspnea, Denies dyspnea on exertion, Denies orthopnea and Denies other (loss of consciousness) Resp Denies cough, Denies dyspnea and Denies dyspnea on exertion GI Denies hematochezia and Denies change in stool character Musc Denies abnormal gait, Denies muscle weakness, Denies numbness, Denies radiating pain into limb and Denies tingling Neuro Denies abnormal gait, Denies dizziness, Denies frequent falls, Denies numbness, Denies tingling and Denies weakness Endo Denies fatigue and Denies palpitations Physical Exam Vital Signs: Last Vital Signs Pulse 74 10/03/24 10:48 BP 128/68 10/03/24 10:48 BMI result Body Mass Index 37.2 Const General: cooperative, comfortable, no acute distress, alert and awake Nutritional Appearance: obese Orientation/consciousness: patient oriented x3 Limitations: no limitations Neck Neck: Yes trachea midline, Yes supple and Yes no JVD Resp Effort & Inspection: normal respiratory effort Auscultation: clear to auscultation bilaterally and diminished lung sounds Cardio Jugular venous distension: no JVD Palpation: normal PMI Rate: regular rate Rhythm: abnormal rhythm with ectopic beats Heart sounds: S1 normal heart sound present and S2 normal heart sound present GI Auscultation: normal bowel sounds Skin General skin exam: no rashes or lesions noted Neuro General: patient oriented x3 and no focal motor deficits Extrem General: Yes no clubbing, cyanosis or edema Psych Appearance: grossly normal Office Procedures EKG Details: EKG shows normal sinus rhythm normal EKG 93450-[id number], Complete Assessment & Plan Assessment & Plan (1) Paroxysmal atrial fibrillation: Code(s): I48.0 - Paroxysmal atrial fibrillation Category: Medical Plan: Highly symptomatic paroxysmal atrial fibrillation has done well with rhythm control approach. Continue rhythm control approach. Importance of continue medication compliance with medication was discussed. Continue risk factor modification including weight loss as well as hypertension as control of diabetes. Continue current Multaq therapy which has helped him significantly. Will repeat EKGs every 3 months. Follow up in the clinic in 1 year's time. Continue full oral anticoagulation, currently on Xarelto 20 mg daily. Semi annual renal function test is recommended. Avoidance of stimulants was discussed. Advised to call me with recurrent symptoms. (2) HTN (hypertension): Code(s): I10 - Essential (primary) hypertension Category: Medical Plan: Hypertension which is currently well optimized on current therapy. Importance of good blood pressure control was discussed. Target goal blood pressure less than 130/84. Low-salt diet was discussed. Advised to monitor blood pressure at home and maintain a log. Continue aggressive diabetes management goal hemoglobin A1c less than 7%. Will follow up in the clinic every 3 months for EKG in 1 year with me. Coding Level of Care Code Est Pt Level 4 (12799) Complex EM visit Add On G2211 Diagnoses Paroxysmal atrial fibrillation I48.0 HTN (hypertension) I10 CPT Codes EKG - CPT: 54994-[id number], Complete ([id number])
[2024-10-03 10:48] VITALS: BP 128/68; PULSE 74; BMI 37.2
--- OUTSIDE RECORDS SUMMARY | 2024-10-03 11:28 | XMS_ITS | Encounter Summary ---
Author Organization [employer] Address [address] [facility] 7t [place] [address] Care Team Providers Care Forepart Rounder Name Role Phone Elina Webb MD Primary Care Provider [phone]- [phone] Alvarez Chandler DPM Unavailable [phone] José De Santiago MD Unavailable [phone] Reason for Visit * Reason Onset Date Comments Med Refill 11/16/2023 Encounter Details Date Type Department Care Team (Late st Contact Info) Description 11/16/2023 Telephone [facility] [address] [place], [place] [phone] Elina Webb MD [address] [place], [place] [phone] Med Refill Social History Tobacco Use Types [...] 12 hr tablet To be sent to: [facility] #[id number] AT [facility] documented in this encounter Plan of Treatment Upcoming Encounters Date Type Department Care Team ([facility] Contact Info) Description 11/07/2024 10:30 AM EDT Telemedicine [facility] [address] [place] [address] Sadie Baird RN [address] [place] [address] documented as of this encounter Visit Diagnoses Not on filedocumented in this encounter Additional Health Concerns Assessment Noted Time PHQ-9 Depression Total Score: 0 04/24/19 24 11:11 AM EST documented as of this encounter Care Teams Forepart Rounder Relationship Specialty Start Date End Date Elina Webb MD [address] [place] [address] [phone] PCP - General Family Medicine 03/30/18 Alvarez Chandler DPM [address] [place] [address] [address] [place] [address] Podiatry 04/22/24 José De Santiago MD [address] [place] [address] [address] [place] [address] Ophthalmology 05/18/24 documented as of this encounter
--- OUTSIDE RECORDS SUMMARY | 2024-10-03 11:28 | XMS_ITS | Clinical Summary ---
Author Organization [address] [facility] Address [address] [place] [address] Phone Care Team Providers Care Extrusion Utility Worker Name Role Phone Elina Webb MD Primary Care Provider [phone]- [phone] Allergies Active Allergy Reactions Criticality Noted Date Comments Vancomycin 07/07/2023 Medications metFORMIN XR (GLUCOPHAGE-XR) 750 mg 24 hr tablet Take 1 tablet (750 mg total) by mouth 2 (two) times a day. Active rivaroxaban (XARELTO ORAL) Take 30 mg by mouth 1 (one) time each day. Active atorvastatin (LIPITOR) 40 mg tablet Take 1 tablet (40 mg total) by mouth 1 (one) time each day. Active morphine (MSIR) 30 mg tablet Take 1 tablet (30 mg total) by mouth 2 (two) times a day. Active Encounters Date Type Department Care Team Description 07/20/2024 9:30 AM EDT Office Visit Orthopedic Surgery [facility] [address] [phone] Alvarez Chandler, DPYolis Exostosis of right foot (Primary Dx); Ulcer of toe of left foot, with fat layer exposed (CMS/[facility] V24, CMS/[facility] V28); Metatarsalgia of both feet; Dermatophytosis of nail; Pain in toe of right foot; Pain in toe of left foot; Type II diabetes mellitus with peripheral circulatory disorder (CMS/HCC V24, CMS/[facility] V28); Diabetic mononeuropathy simplex (CMS/[facility] V24, CMS/[facility] V28) from Last 3 Months Social History Tobacco Use Types Packs/Day Years Used Date Smoking Tobacco: Never Assessed Sex and Gender Information Value Date Recorded Sex Assigned at Not on file Legal Sex Male 8:54 PM EST Gender Identity Not on file Sexual Orientation Not on file Last Filed Vital Signs Vital Sign Reading Time Taken Comments Blood Pressure - - Pulse - - Temperature - - Respiratory Rate - - Oxygen Saturation - - Inhaled Oxygen Concentration - - Weight 123 kg (272 lb) 07/20/2024 9:41 AM EDT Height 180.3 cm (5' 10.98 ) 07/20/2024 9:41 AM E DT Body Mass Index 37.95 07/20/2024 9:41 AM EDT Plan of Treatment Upcoming Encounters Date Type Department Care Team (Late st Contact Info) Description 10/19/2024 10:00 AM EDT Office Visit Orthopedic Surgery - [place] [address] [phone] Alvarez Chandler DPM [address] [address] Health Maintenance Due Date Last Done Comments Diabetes: Annual GFR (Glomerular Filtration Rate) 1960 Diabetes: Annual Foot Exam 12/28/1969 Diabetes: Annual Retina Eye Exam 12/28/1969 Zoster Vaccines (1 of 2) 12/28/2009 Colorectal Cancer Screening: Colonoscopy 04/24/2023 Social Influencers of Health Screening 04/24/2023 Diabetes: Annual Urine Albumin-Creatinine Ratio (uACR) 04/22/2024 Diabetes: Blood Sugar Control Test (HGBA1C) 04/22/2024 04/24/2023 Hypertension/CHF/CAD Annual BMP Blood Test 04/22/2024 Depression Screening 04/24/2024 04/24/2023 Influenza Vaccine (#1) 2024 , 01/03/2023, 01/31/2021, Additional history exists Cholesterol Screening (Lipid Panel) 06/09/2028 06/10/2023 DTaP,Tdap,and Td Vaccines (3 - Td or Tdap) 04/24/2033 04/24/2023, 11/06/2011 Pneumococcal Vaccine: 50+ Years Completed 01/24/2023, 01/01/2012 Pneumococcal Vaccine: Pediatrics (0 to 5 Years) and At-Risk Patients (6 to 64 Years) Completed 01/24/2023, 01/01/2012 RSV Immunization Adult Patients Completed 01/24/2023 HIV Screening Completed 06/10/2023 Hepatitis C Screening Completed 06/10/2023 COVID-19 Vaccine Completed 02/09/2024, 09/2022, 07/08/2021, Additional history exists HIB Vaccines Aged Out No longer eligi ble based on patient's age to complete this topic HPV Vaccines Aged Out No longer eligi ble based on patient's age to complete this topic Hepatitis A Vaccines Aged Out No long er eligible based on patient's age to complete this topic Hepatitis B Vaccines Aged Out No long er eligible based on patient's age to complete this topic IPV Vaccines Aged Out No longer eligi ble based on patient's age to complete this topic MMR Vaccines Aged Out No longer eligi ble based on patient's age to complete this topic Meningococcal ACWY Vaccine Aged Out N o longer eligible based on patient's age to complete this topic Meningococcal B Vaccine Aged Out No l onger eligible based on patient's age to complete this topic RSV Immunization Patients Under 20 months Aged Out No longer eligible based on patient's age to complete this topic Varicella Vaccines Aged Out No longer eligible based on patient's age to complete this topic Insurance MEDICAID - [place] Care Teams Extrusion Utility Worker Relationship Specialty Start Date End Date Elina Webb MD [address] [place] [phone] PCP - General 02/21/13
== END 2024-10-03 11:28 | disposition home or self-care (01) ==
LOC: HO.HCS 10:36
PROVIDERS: PCP Family Medicine; Visit Provider Internal Medicine Cardiovascular Disease
DX: I48.0 Paroxysmal atrial fibrillation (principal); I10 Essential (primary) hypertension
CPT/HCPCS: 93010; 99214

== ENCOUNTER → 2024-10-03 10:35 | Outpatient (BNVA) | payer MEDICAID, SELFPAY | PROVIDERS: PCP Family Medicine; Visit Provider Internal Medicine Cardiovascular Disease | DX: I48.0 Paroxysmal atrial fibrillation (principal); I10 Essential (primary) hypertension | CPT/HCPCS: 93005; 99212 ==

== ENCOUNTER 2025-01-04 10:14 | Outpatient (REF) | payer MEDICAID, SELFPAY ==
[2025-01-04 12:18] LABS: Hematocrit 41.6 % (42.0-52.0); Hemoglobin 13.4 g/dl (14.0-18.0); Mean Corpuscular HGB Conc 32.2 g/dl (31.0-36.0); Mean Corpuscular Hemoglobin 30.7 pg (27.0-33.0); Mean Corpuscular Volume 95.2 fL (80.0-98.0); NRBC Abs Auto 0.000 X10*3/uL (0.0-0.012); NRBC Pct Auto 0.0 /100WBC (0.0-0.2); Platelet Count 258 X10*3/uL (160-400); Red Blood Count 4.37 X10*6/uL (4.60-5.80); White Blood Count 11.0 X10*3/uL (4.8-10.8)
[2025-01-04 12:42] LABS: Prostate Specific Antigen 0.27 ng/mL (<0.05-4.0)
[2025-01-04 12:44] LABS: Alanine Aminotransferase 31 U/L (0-40); Albumin Level 4.0 g/dL (3.5-5.0); Alkaline Phosphatase 113 U/L (39-117); Anion Gap 12 (12-20); Aspartate Amino Transferase 27 U/L (5-37); Blood Urea Nitrogen 14 mg/dL (9-16); Calcium 8.9 mg/dL (8.4-10.2); Carbon Dioxide 27 mmol/L (22-29); Chloride 105 mmol/L (96-108); Cholesterol 114 mg/dL (<200); Estimated Glomerular Filt Rate > 60; HDL Cholesterol 33 mg/dL (>40); Potassium 4.9 mmol/L (3.3-5.1); Sodium 139 mmol/L (135-145); Total Protein 7.1 g/dL (6.5-8.0); Triglycerides 109 mg/dL (<150)
[2025-01-04 12:50] LABS: Microalbum/Creatinine Ratio Ur 46.2 ug/mg cr (<30)
[2025-01-04 12:53] LABS: Ferritin 120 ng/mL (20-250)
[2025-01-04 12:56] LABS: Folate 3.5 ng/mL (> or = 4.0); Vitamin B12 293 pg/mL (200-900)
[2025-01-04 13:34] LABS: Hemoglobin A1C 214.5494 umol/L; Total Hemoglobin (HGBA1C) 3413.5367 umol/L
== END 2025-01-04 10:15 | disposition home or self-care (01) ==
LOC: HO.10HDL 10:14
PROVIDERS: Visit Provider Family Medicine
DX: E11.42 Type 2 diabetes mellitus with diabetic polyneuropathy (principal); F33.1 Major depressive disorder, recurrent, moderate; E53.8 Deficiency of other specified B group vitamins; C61 Malignant neoplasm of prostate; Z86.2 Personal history of diseases of the blood and blood-forming organs and certain disorders involving the immune mechanism
CPT/HCPCS: 36415; 80048; 80061; 80076; 82043; 82570; 82607; 82728; 82746; 83036; 84153; 84443; 85027